=== PATIENT | female | born 1970 | race Caucasian/White ===

== ENCOUNTER 2019-09-18 09:59 | Outpatient (CLI) | payer BC, SELFPAY ==
--- NOTE | 2019-09-18 11:00 | NEURO_ITS ---
Patient Number: [id number] Impression: # Complains of numbness of right hand. # Right Carpal Tunnel Syndrome of moderate degree. # Right ulnar neuropathy across the elbow. # Normal needle/EMG exam. # Clinical correlation recommended. Nerve Conduction Studies Anti Sensory Summary Table Stim Site NR Peak (ms) P-T Amp (?V) Site1 Site2 Delta-P (ms) Dist (cm) Conner (m/s) Right Median Anti Sensory (2-3nd Digit) Wrist 5.3 11.0 Wrist 2-3nd Digit 5.3 14.0 26 Wrist 5.4 11.9 Wrist 2-3nd Digit 5.3 14.0 26 Right Radial Anti Sensory (Base 1st Digit) Wrist 2.3 29.8 Wrist Base 1st Digit 2.3 0.0 Right Ulnar Anti Sensory (5th Digit) Wrist 2.4 54.1 Wrist 5th Digit 2.4 14.0 58 Motor Summary Table Stim Site NR Onset (ms) O-P Amp (mV) Site1 Site2 Delta-0 (ms) Dist (cm) Conner (m/s) Right Median Motor (Abd Poll Brev) Wrist 4.8 1.0 Elbow Wrist 4.9 27.0 55 Elbow 9.7 0.9 Right Ulnar Motor (Abd Dig Minimi) Wrist 2.9 6.1 A Elbow Wrist 5.7 27.0 47 A Elbow 8.6 3.7 B Elbow Wrist 4.4 20.0 45 B Elbow 7.3 1.2 F Wave Studies NR F-Lat (ms) L-R F-Lat (ms) Right Median (Mrkrs) (Abd Poll Brev) 29.44 Right Ulnar (Mrkrs) (Abd Dig Min) 29.77 EMG Side Muscle Nerve Root Ins Act Fibs Amp Dur Recrt Comment Right 1stDorInt Ulnar C8-T1 Nml Nml Nml Nml Nml Right Ext Indicis Radial (Post Int) C7-8 Nml Nml Nml Nml Nml Right Ext Digitorum Radial (Post Int) C7-8 Nml Nml Nml Nml Nml Right BrachioRad Radial C5-6 Nml Nml Nml Nml Nml Right PronatorTeres Median C6-7 Nml Nml Nml Nml Nml Right Abd Poll Brev Median C8-T1 Nml Nml Nml Nml Nml MTDD
== END 2019-09-18 10:00 | disposition home or self-care (01) ==
PROVIDERS: PCP Family Medicine Adolescent Medicine; Visit Provider Physician Assistant
DX: R20.0 Anesthesia of skin (principal); G56.01 Carpal tunnel syndrome, right upper limb; G56.21 Lesion of ulnar nerve, right upper limb
CPT/HCPCS: 95886; 95909

== ENCOUNTER 2019-11-23 00:03 | Outpatient (CLI) | payer BC, SELFPAY ==
[2019-11-23 20:58] LABS: SARS-CoV-2 RNA PCR Negative
== END 2019-11-23 00:04 | disposition home or self-care (01) ==
LOC: ANHCOVIDDT 00:04
PROVIDERS: PCP Family Medicine Adolescent Medicine; Visit Provider Orthopaedic Surgery
DX: Z01.812 Encounter for preprocedural laboratory examination (principal); Z11.59 Encounter for screening for other viral diseases
CPT/HCPCS: 87635; C9803; U0003

== ENCOUNTER 2019-11-23 08:24 | Outpatient (CLI) | payer BC, SELFPAY ==
--- NOTE | 2019-11-23 08:43 | ECG_ITS ---
Measurements Intervals [place] Rate: 79 P: 47 [place]: 153 QRS: 14 QRSD: 98 T: 38 QT: 346 QTc: 397 Interpretive Statements SINUS RHYTHM INCOMPLETE RIGHT BUNDLE BRANCH BLOCK BASELINE WANDER- II, III BORDERLINE ECG Electronically Signed On 11-23-2019 9:27:29 CDT by Parminder Mccarthy D.O.
[2019-11-23 09:40] LABS: Blood Urea Nitrogen 13 mg/dL (7-17); Calcium 9.7 mg/dL (8.4-10.2); Carbon Dioxide 23 mmol/L (22-30); Chloride 99 mmol/L (98-107); Estimated Glomerular Filt Rate > 60; Glucose 389 mg/dL (65-105); Potassium 4.1 mmol/L (3.4-5.0); Sodium 133 mmol/L (137-145)
== END 2019-11-23 08:25 | disposition home or self-care (01) ==
PROVIDERS: PCP Family Medicine Adolescent Medicine; Visit Provider Anesthesiology
DX: G56.01 Carpal tunnel syndrome, right upper limb (principal); I45.10 Unspecified right bundle-branch block
CPT/HCPCS: 36415; 80048; 93005

== ENCOUNTER 2020-06-05 10:01 | Outpatient (CLI) | payer BC, SELFPAY ==
--- NOTE | 2020-06-05 12:00 | NEURO_ITS ---
Impression: # Known diabetic complains of numbness of left hand. # Mild evolving left Carpal Tunnel Syndrome with sensory component more the motor involvement. # Otherwise normal nerve conduction study. # Normal needle/EMG exam. Nerve Conduction Studies Anti Sensory Summary Table Stim Site NR Peak (ms) P-T Amp (?V) Site1 Site2 Delta-P (ms) Dist (cm) Conner (m/s) Left Median Anti Sensory (2-3nd Digit) Wrist 4.3 12.3 Wrist 2-3nd Digit 4.3 14.0 33 Wrist 4.8 23.2 Wrist 2-3nd Digit 4.3 14.0 33 Left Radial Anti Sensory (Base 1st Digit) Wrist 2.2 13.4 Wrist Base 1st Digit 2.2 0.0 Left Ulnar Anti Sensory (5th Digit) Wrist 2.5 39.2 Wrist 5th Digit 2.5 14.0 56 Motor Summary Table Stim Site NR Onset (ms) O-P Amp (mV) Site1 Site2 Delta-0 (ms) Dist (cm) Conner (m/s) Left Median Motor (Abd Poll Brev) Wrist 3.4 4.1 Elbow Wrist 6.0 29.0 48 Elbow 9.4 2.0 Left Ulnar Motor (Abd Dig Minimi) Wrist 2.2 7.5 A Elbow Wrist 5.5 26.0 47 A Elbow 7.7 6.1 B Elbow Wrist 4.4 23.0 52 B Elbow 6.6 2.9 F Wave Studies NR F-Lat (ms) L-R F-Lat (ms) Left Median (Mrkrs) (Abd Poll Brev) 29.77 Left Ulnar (Mrkrs) (Abd Dig Min) 29.53 EMG Side Muscle Nerve Root Ins Act Fibs Amp Dur Recrt Comment Left 1stDorInt Ulnar C8-T1 Nml Nml Nml Nml Nml Left Ext Indicis Radial (Post Int) C7-8 Nml Nml Nml Nml Nml Left Ext Digitorum Radial (Post Int) C7-8 Nml Nml Nml Nml Nml Left BrachioRad Radial C5-6 Nml Nml Nml Nml Nml Left PronatorTeres Median C6-7 Nml Nml Nml Nml Nml Left Abd Poll Brev Median C8-T1 Nml Nml Nml Nml Nml Left ABD Dig Min Ulnar C8-T1 Nml Nml Nml Nml Nml MTDD
== END 2020-06-05 10:02 | disposition home or self-care (01) ==
LOC: ANHNEURO 10:02
PROVIDERS: PCP Family Medicine Adolescent Medicine; Visit Provider Orthopaedic Surgery
DX: G56.02 Carpal tunnel syndrome, left upper limb (principal)
CPT/HCPCS: 95886; 95909

== ENCOUNTER → 2020-09-03 10:11 | Outpatient (CLI) | payer BC, SELFPAY ==
[2020-09-03 20:45] LABS: SARS-CoV-2 RNA PCR Positive
== END ==
PROVIDERS: PCP Family Medicine Adolescent Medicine; Visit Provider Family Medicine Adolescent Medicine
DX: U07.1 COVID-19 (principal)
CPT/HCPCS: C9803; U0003; U0005

== ENCOUNTER 2021-02-25 11:50 | Outpatient (CLI) | payer OTHER, SELFPAY ==
--- NOTE | ~2021-02-25 | XR_ITS ---
XR lumbar spine 2-3V DATE: 02/25/2021 12:15 INDICATION: Lower back pain, radiating to legs. Surgery in 2017. TECHNIQUE: AP, lateral, coned lateral lumbosacral views COMPARISON: 12/20/2014 lumbar spine FINDINGS: There is interval postoperative change with cage devices at L5-S1. There is minimal degenerative disc disease at the lumbar interspaces. There is minimal anterolisthesis at L4-5 due to degenerative change at the apophyseal joints. No fracture or bone destruction. Included lower thoracic and lumbar pedicles are intact. The sacral i liac joints appear normal. Status post cholecystectomy. IMPRESSION: Status post interbody spinal fusion at L5-S1 Minimal anterolisthesis at L4-5 due to degenerative change at the apophyseal joints Minimal degenerative disc disease of the lumbar spine Reviewed, dictated and finalized at location B. IMPRESSION: Status post interbody spinal fusion at L5-S1 Minimal anterolisthesis at L4-5 due to degenerative change at the apophyseal tim ints Minimal degenerative disc disease of the lumbar spine
== END 2021-02-25 11:51 | disposition home or self-care (01) ==
LOC: ANHIMG 11:54
PROVIDERS: PCP Family Medicine Adolescent Medicine; Visit Provider Physician Assistant
DX: M54.5 Low back pain (principal); Z98.1 Arthrodesis status; M47.816 Spondylosis without myelopathy or radiculopathy, lumbar region; Z90.49 Acquired absence of other specified parts of digestive tract
CPT/HCPCS: 72100

== ENCOUNTER 2021-07-09 00:10 | Day surgery (SDC) | payer OTHER, SELFPAY ==
[2021-06-29 15:06] VITALS: BMI 31.4
[2021-07-09 09:30] VITALS: BP 98/66; PULSE 102; RESP 18; TEMP 36.8; O2SAT 96; BMI 31.8
[2021-07-09 09:39] LABS: Glucose Point of Care 283 mg/dl (65-105)
[2021-07-09] MEDS: LACTATED RINGERS 1,000 ML 150 ML IV CONT (09:57)
--- NOTE | 2021-07-09 10:11 | WPDGICN ---
Assessment and Plan Assessment and plan (1) LUQ pain: Code(s): R10.12 - Left upper quadrant pain Status: Acute Assessment and Plan: Patient has ongoing left upper quadrant discomfort. This is of uncertain nature. Appears similar but not as intense as when she had previous diverticulitis episodes. Because of ongoing discomfort colonoscopy is recommended also because of history of diverticulitis. At this time recommend high-fiber diet. Further recommendations will be given after endoscopy. (2) Substernal chest pain: Code(s): R07.2 - Precordial pain Status: Acute Assessment and Plan: Patient has substernal discomfort feels as though there is slow passage of food although she has no regurgitation no burning. No response to pantoprazole. Plan is for EGD to assess more thoroughly and exclude possible underlying GE reflux. Further recommendations will be given after endoscopy. GI Consult Note Consult date/time: 07/09/21 10:11 HPI: Lizeth Olvera is a 50 year old female Presents for endoscopy today. Patient reports several episodes of diverticulitis last year. Initially in the spring and then again in the fall she went to the emergency room. Treated with the antibiotics. She had apparent diverticulitis by CT exam. Patient continues to have vague left upper quadrant discomfort. She states her bowel habits are normal. She has had no recent blood in her stools. Her family history is noncontributory. Additionally she notes occasional substernal pressure after eating. She has no hindrance to eating food solids or liquids. She denies any burning sensation. She is taking Protonix 40mg p.o. daily with no significant change in symptoms. She presents today for colonoscopy an EGD to evaluate ongoing symptoms. Review of Systems Review of Systems: All systems reviewed & are unremarkable except as noted in HPI and below [facility] Past Medical History Medical History (Updated 07/09/21 @ 10:13 by See Alvarez MD) BMI 33.0-33.9,adult Diabetes last A1c 8.8 GERD (gastroesophageal reflux disease) Surgical History Surgical History H/O: hysterectomy (~2011) History of back surgery (~2017) Dr Rubin Family History Family History Sibling Family history of gout Family history of kidney stones Family history of diabetes mellitus in first degree relative Depression Father Family history of heart disease in male family member before age 55 Acute myocardial infarction Diabetes mellitus Hypertension Heart disease Mother Diabetes mellitus Depression Thyroid disorder Other Asthma Depression Grandparent Diabetes mellitus Grandparent Depression Hypertension Other Cerebrovascular accident Family history of arthritis Family history of cardiovascular disease Family history of malignant neoplasm Family history of malignant neoplasm of breast Family history of seizure disorder Family history of throat cancer Social History Social History Smoking status: Former smoker Tobacco type: cigarettes Alcohol intake: never Substance use: never Substance use type: does not use Living arrangements: with family Additional living arrangements comments: 2 daughters Gender identity (if verbalized by the patient): Female Spiritual care concerns: No Meds Home Medications and Allergies Home Medications Medication Instructions Recorded Confirmed Type atorvastatin 10 mg tablet 10 mg PO DAILY 10/09/19 06/29/21 History furosemide 20 mg tablet 20 mg PO QAM 10/09/19 06/29/21 History lisinopril 20 mg tablet 20 mg PO DAILY 10/09/19 06/29/21 History pantoprazole 40 mg tablet,delayed 40 mg PO QAM 10/09/19 06/29/21 History release glimepiride 2 mg tablet 4 mg PO QAM 09/01/20
--- NOTE | 2021-07-09 10:19 | WPDANESEPPF ---
Anes - Initial Pre Proc Eval Procedure: Operation Date: 07/09/21 10:45 Proposed Procedures p Esophagogastroduodenoscopy & Colonoscopy - See Alvarez MD Date/Time: 07/09/21 10:19 Surgeon: See Alvarez MD Pre Op Diagnosis: abdominal pain, nausea, diverticulitis Patient Data Age: 50 Gender: F Height: 1.7 m Weight: 92.1 kg Last Vital Signs Temp 98.3 F 07/09/21 09:30 Pulse 102 H 07/09/21 09:30 Resp 18 07/09/21 09:30 BP 98/66 L 07/09/21 09:30 Pulse Ox 96 07/09/21 09:30 Allergies Allergy/AdvReac Type Severity Reaction Status Date / Time No Known Allergies Allergy Unknown Verified 07/09/21 09:39 Home Medications Medication Instructions Recorded Confirmed Type atorvastatin 10 mg tablet 10 mg PO DAILY 10/09/19 06/29/21 History furosemide 20 mg tablet 20 mg PO QAM 10/09/19 06/29/21 History lisinopril 20 mg tablet 20 mg PO DAILY 10/09/19 06/29/21 History pantoprazole 40 mg tablet,delayed 40 mg PO QAM 10/09/19 06/29/21 History release glimepiride 2 mg tablet 4 mg PO QAM 09/01/20 06/29/21 History insulin detemir U-100 100 unit/mL 85 unit SUBCUT DAILY #80 ml 06/02/21 06/29/21 Rx subcutaneous solution pen needle, diabetic 32 gauge x #100 ea 06/04/21 06/11/21 Rx /32 thyroid (pork) 60 mg tablet 60 mg PO DAILY 06/11/21 06/29/21 History hydrocodone 7.5 mg-acetaminophen 1 tablet PO Q4H PRN #180 tablet 06/12/21 06/29/21 Rx 325 mg tablet insulin syringe-needle U-100 1 mL #30 ea 06/22/21 Rx 29 gauge x 2 ibuprofen 600 mg PO Q6H PRN 06/29/21 06/29/21 History Laboratory Tests 07/09/21 09:37 POC Capillary Glucose 283 mg/dl H mg/dl (65-105) Patient hx anesthesia problems: none Family hx anesthesia problems: none Results Review: All pre-operative results and documents have been reviewed as part of the pre-operative evaluation. [facility] Past Medical History Medical History (Updated 07/09/21 @ 10:13 by See Alvarez MD) BMI 33.0-33.9,adult Diabetes last A1c 8.8 GERD (gastroesophageal reflux disease) Surgical History Surgical History H/O: hysterectomy (~2011) History of back surgery (~2017) Dr Rubin Family History Family History Sibling Family history of gout Family history of kidney stones Family history of diabetes mellitus in first degree relative Depression Father Family history of heart disease in male family member before age 55 Acute myocardial infarction Diabetes mellitus Hypertension Heart disease Mother Diabetes mellitus Depression Thyroid disorder Other Asthma Depression Grandparent Diabetes mellitus Grandparent Depression Hypertension Other Cerebrovascular accident Family history of arthritis Family history of cardiovascular disease Family history of malignant neoplasm Family history of malignant neoplasm of breast Family history of seizure disorder Family history of throat cancer Social History Social History Smoking status: Former smoker Tobacco type: cigarettes Alcohol intake: never Substance use: never Substance use type: does not use Living arrangements: with family Additional living arrangements comments: 2 daughters Gender identity (if verbalized by the patient): Female Spiritual care concerns: No Anes - Eval Final PreProcedure Day of Procedure 07/09/21 10:19 Patient weight: obese Heart: regular rate and rhythm Lungs: clear to auscultation Airway: Mallampati scale class II Neurological: alert and oriented Last oral intake: >/= 8 hours ASA classification: III Emergent: no Anesthetic plan: proceed Anesthesia type and monitoring: general GIVS and standard monitoring Results Review: All pre-operative results and documents have been reviewed as part of the pre-operative evaluation. Inf
[2021-07-09] MEDS: BENZOCAINE (*SP) 60 ML SPRAY CAN (HURRICAINE) 1 SPRAY MUCOUS MEM (10:24)
--- NOTE | 2021-07-09 10:33 | SUR.OPER ---
EGD: [id number] COLON: [id number]
[2021-07-09 10:50] VITALS: BP 98/54; PULSE 78; RESP 20; O2SAT 96
[2021-07-09 11:00] VITALS: BP 98/57; PULSE 76; RESP 17; O2SAT 94
[2021-07-09 11:10] VITALS: BP 99/62; PULSE 76; RESP 17; O2SAT 94
[2021-07-09 11:14] LABS: Glucose Point of Care 239 mg/dl (65-105)
== END 2021-07-09 11:33 | disposition home or self-care (01) ==
PROVIDERS: PCP Family Medicine Adolescent Medicine; Visit Provider Internal Medicine Gastroenterology
PROC: 0DJ08ZZ Inspection of Upper Intestinal Tract, Via Natural or Artificial Opening Endoscopic (ICD-10-PCS; CPT 43235; principal; 2021-07-09 10:45)
DX: K52.9 Noninfective gastroenteritis and colitis, unspecified (principal); R07.2 Precordial pain; K21.9 Gastro-esophageal reflux disease without esophagitis; E11.9 Type 2 diabetes mellitus without complications; Z87.891 Personal history of nicotine dependence; Z79.84 Long term (current) use of oral hypoglycemic drugs; Z79.4 Long term (current) use of insulin; E66.9 Obesity, unspecified; Z68.31 Body mass index [BMI] 31.0-31.9, adult
CPT/HCPCS: 45380; 43239; 82948; 87081; 88305; J2704; J7120

== ENCOUNTER 2023-01-11 14:46 | Outpatient (CLI) | payer BC, OTHER, SELFPAY ==
[2023-01-11 17:32] LABS: Blood Urea Nitrogen 15 mg/dL (7-17); Calcium 9.9 mg/dL (8.4-10.2); Carbon Dioxide > 40 mmol/L (22-30); Chloride 93 mmol/L (98-107); Estimated Glomerular Filt Rate 59; Glucose 106 mg/dL (65-110); HDL Direct 39 mg/dL; Potassium 3.6 mmol/L (3.4-5.0); Sodium 139 mmol/L (137-145)
[2023-01-11 17:43] LABS: LDL Cholesterol Direct 89 mg/dL
[2023-01-11 18:34] LABS: Free T4 Free Thyroxine 0.73 ng/mL (0.78-2.19); Vitamin D 25 Hydroxy 39.3 ng/mL
[2023-01-11 18:40] LABS: Creatinine Urine 205.3 mg/dL
[2023-01-11 18:42] LABS: MALB Creatinine Ratio 11.1 mg/g (0-30); Microalbumin Urine Random 22.7 mg/L (0-16.7)
== END 2023-01-11 14:47 | disposition home or self-care (01) ==
LOC: ANHWCLAB 14:48
PROVIDERS: PCP Family Medicine Adolescent Medicine; Visit Provider Internal Medicine Endocrinology, Diabetes & Metabolism
DX: E03.9 Hypothyroidism, unspecified (principal); E11.65 Type 2 diabetes mellitus with hyperglycemia; E55.9 Vitamin D deficiency, unspecified; E78.1 Pure hyperglyceridemia
CPT/HCPCS: 36415; 80048; 82043; 82306; 82607; 83718; 83721; 84439; 84443

== ENCOUNTER 2023-05-28 12:42 | Outpatient (CLI) | payer OTHER, SELFPAY ==
--- NOTE | ~2023-05-28 | CT_ITS ---
EXAMINATION:CT diagnostic chest wo con DATE: 05/28/2023 12:59 INDICATION: Right lung nodule. TECHNIQUE: Computed tomography (CT) of the chest was performed without intravenous contrast. Automate d exposure control and iterative reconstruction technique were employed. The dose-length product (DLP ) was 192.86 mGy-cm. COMPARISON: None. FINDINGS: The lungs demonstrate mild atelectasis. There is a 6 mm nodule in right lower lobe. There i s a 5 mm nodule in left upper lobe. A calcified left lung nodule and calcified mediastinal lymph node s are consistent with old granulomatous disease. No pleural effusion. The heart size is normal. No pe ricardial effusion. There are coronary artery calcifications. There are changes of cholecystectomy. T here is mild thoracic spondylosis. IMPRESSION: 1. Pulmonary nodules measuring up to 6 mm, probably benign. Consider noncontrast low-dose chest CT in 6-12 months. Reviewed, dictated and finalized at location A. L SPRAY OPERATOR IMPRESSION: 1. Pulmonary nodules measuring up to 6 mm, probably benign. Consider noncontras t low-dose chest CT in 6-12 months.
== END 2023-05-28 12:43 | disposition home or self-care (01) ==
LOC: ANHIMG 12:43
PROVIDERS: PCP Family Medicine Adolescent Medicine; Visit Provider Family Medicine Adolescent Medicine
DX: R91.1 Solitary pulmonary nodule (principal); R91.8 Other nonspecific abnormal finding of lung field
CPT/HCPCS: 71250

== ENCOUNTER 2023-10-04 08:12 | Outpatient (CLI) | payer BC, SELFPAY ==
--- NOTE | ~2023-10-04 | MM_ITS ---
EXAMINATION: MM screening sarah BI w ana HISTORY: Screening mammogram TECHNIQUE: Craniocaudal and mediolateral oblique 3-D tomosynthesis images were obtained and synthetic 2-D images were generated. CAD analysis was submitted and interpreted. COMPARISON: No prior mammogram is available for comparison at this institution. BREAST PARENCHYMAL COMPOSITION: The breasts are almost entirely fatty. FINDINGS: There is no evidence of suspicious mass, calcification, or architectural distortion to sugg est malignancy in either breast. There has been no suspicious interval change. IMPRESSION: 1. No mammographic evidence of malignancy. 2. Recommend routine screening mammography in one year. BI-RADS Category 1: Negative Reviewed, dictated and finalized at location B.
== END 2023-10-04 08:13 | disposition home or self-care (01) ==
PROVIDERS: PCP Family Medicine Adolescent Medicine; Visit Provider Family Medicine Adolescent Medicine
DX: Z12.31 Encounter for screening mammogram for malignant neoplasm of breast (principal)
CPT/HCPCS: 77063; 77067

== ENCOUNTER 2025-01-23 09:03 | Outpatient (CLI) | payer BC, SELFPAY ==
--- NOTE | ~2025-01-23 | XR_ITS ---
XR lumbar spine min 4V Indication: M54.9 - Dorsalgia, unspecified Comparison: None Findings: Grade 1 anterolisthesis of L4 on L5, no acute fracture. Disc prosthesis at L5-S1, the hardware is intact. Minimal loss of the remaining disc heights. Soft tissues unremarkable Impression: No acute abnormality. Reviewed, dictated and finalized at location A. Impression: No acute abnormality.
--- NOTE | ~2025-01-23 | CT_ITS ---
EXAMINATION: CT diagnostic chest wo con DATE: 01/23/2025 09:28 INDICATION: Solitary pulmonary nodule TECHNIQUE: Computed tomography (CT) of the chest was performed without intravenous contrast. The dose-length product was 103.03 mGy-cm. COMPARISON: 05/28/2023 FINDINGS: No enlarged mediastinal or hilar lymph nodes identified. There are a few nonenlarged, nonspecific mediastinal and hilar lymph nodes a few which are calcified similar to the prior study. Heart is not enlarged. Minimal calcification of the coronary arteries. Thoracic aorta is is not aneurysmal. Cholecystectomy. Tracheobronchial tree is patent. No pleural effusion. No pneumothorax. No pulmonary mass. Stable calcified 6 mm subpleural nodule in the left lung apex. Stable mm noncalcified pulmonary nodule in the left lung apex. The previously identified 5 mm pulmonary nodule in the lingula is no longer id entified. Stable 6 cm pulmonary nodule in the right lower lobe. Multilevel mild degenerative change in the visualized spine similar to the prior study. IMPRESSION: 1. Stable 6 mm pulmonary nodule in the right lower lobe. No new pulmonary nodules. A follow-up chest CT in 6 months is recommended. Reviewed, dictated and finalized at location Q. IMPRESSION: 1. Stable 6 mm pulmonary nodule in the right lower lobe. No new pulmonary nodul es. A follow-up chest CT in 6 months is recommended.
--- OUTSIDE RECORDS SUMMARY | 2025-01-23 09:14 | XMS_ITS | Encounter Summary ---
Author Organization [facility] Facility Care Team Providers Care Archives Technician Name Role Phone Tricia Palma Primary Care Provider [phone] Rafita Benoit MD Primary Care Prov ider Encounter Details Date Type Department Care Team (Latest Contact Info) Description 08/26/2016 Orders Only [facility] CLINCONV ProviderPa MD [address] [place] [id number] Social History Tobacco Use Types Packs/Day Years Used Date Smoking Tobacco: Never Assessed Comments Unknown Sex and Gender Information Value Date Recorded Sex Assigned at Not on file Legal 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 Historical Provider Final Res ult documented in this encounter Visit Diagnoses Not on filedocumented in this encounter Care Teams Archives Technician Relationship Specialty Start Date End Date Tricia Palma PA [address] [place] [address] PCP - General Physician Board Worker 02/26/21 04/21/21 Rafita Benoit MD [address] [place] [address] PCP - General Family Medicine 04/22/21 documented as of this encounter
--- OUTSIDE RECORDS SUMMARY | 2025-01-23 09:14 | XMS_ITS | Encounter Summary ---
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 Historical Provider MD Final Res ult * PROCEDURE - RESULT (11/05/2016 12:00 AM CDT) Narrative 11/05/2016 12:00 AM CDT Ordered by an unspecified provider. Historical Provider Final Res ult * PROCEDURE - RESULT (11/05/2016 12:00 AM CDT) Narrative 11/05/2016 12:00 AM CDT Ordered by an unspecified provider. Historical Provider Final Res ult * PROCEDURE - RESULT (11/05/2016 12:00 AM CDT) Narrative 11/05/2016 12:00 AM CDT Ordered by an unspecified provider. Historical Provider Final Res ult documented in this encounter Visit Diagnoses Not on filedocumented in this encounter Care Teams Refueling Ramp Supervisor Relationship Specialty Start Date End Date Tricia Palma PA [address] [place] [address] PCP - General Physician Press Leader 02/26/21 04/21/21 Rafita Benoit MD [address] [place] [address] PCP - General Family Medicine 04/22/21 documented as of this encounter
--- OUTSIDE RECORDS SUMMARY | 2025-01-23 09:14 | XMS_ITS | Encounter Summary ---
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 Historical Provider Final Res ult documented in this encounter Visit Diagnoses Not on filedocumented in this encounter Care Teams Spring Setter Relationship Specialty Start Date End Date Tricia Palma PA [address] [place] [address] PCP - General Physician Winchman/Crane Operator 02/26/21 04/21/21 Rafita Benoit MD [address] [place] [address] PCP - General Family Medicine 04/22/21 documented as of this encounter
--- OUTSIDE RECORDS SUMMARY | 2025-01-23 09:14 | XMS_ITS | Encounter Summary ---
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 Historical Provider Final Res ult documented in this encounter Visit Diagnoses Not on filedocumented in this encounter Care Teams Vamp Creaser Relationship Specialty Start Date End Date Tricia Palma PA [address] [place] [address] PCP - General Physician Sanitation Worker Cleaning Machinery 02/26/21 04/21/21 Rafita Benoit MD [address] [place] [address] PCP - General Family Medicine 04/22/21 documented as of this encounter
--- OUTSIDE RECORDS SUMMARY | 2025-01-23 09:14 | XMS_ITS | Clinical Summary ---
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 Gender Identity Not on file Sexual Orientation Not on file Last Filed Vital Signs Vital Sign Reading Time Taken Comments Blood Pressure 114/79 11/05/2016 2:19 PM CDT Pulse 82 11/05/2016 2:19 PM CDT Temperature 37 C (98.6 F) 11/05/2016 2:19 PM CDT Respiratory Rate - - Oxygen Saturation 97% 11/05/2016 2:19 PM CDT Inhaled Oxygen Concentration - - Weight 98 kg (216 lb) 11/05/2016 2:19 PM CDT Height 170.2 cm (5' 7) 11/05/2016 2:19 PM CDT Body Mass Index 33.83 11/05/2016 2:19 PM CDT Plan of Treatment Not on file Insurance [facility] Care Teams Electronic Musical Instrument Repairer Relationship Specialty Start Date End Date Rafita Benoit MD PCP - General Family Medicine 04/22/21
--- OUTSIDE RECORDS SUMMARY | 2025-01-23 09:14 | XMS_ITS | Encounter Summary ---
Author Organization [facility] Facility Care Team Providers Care Watch Crystal Molder Name Role Phone Tricia Palma Primary Care Provider [phone] Rafita Benoit MD Primary Care Prov ider Encounter Details Date Type Department Care Team (Latest Contact Info) Description 09/14/2016 Orders Only [facility]G CLINCONV ProviderPa MD [address] [place] [address] Social History Tobacco Use Types Packs/Day Years Used Date Smoking Tobacco: Never Assessed Comments Unknown Sex and Gender Information Value Date Recorded Sex Assigned at Not on file Legal Sex Female 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 Historical Provider Final Res ult documented in this encounter Visit Diagnoses Not on filedocumented in this encounter Care Teams Watch Crystal Molder Relationship Specialty Start Date End Date Tricia Palma PA [address] [place] [address] PCP - General Physician Business Support Specialist 02/26/21 04/21/21 Rafita Benoit MD [address] [place] [address] PCP - General Family Medicine 04/22/21 documented as of this encounter
--- OUTSIDE RECORDS SUMMARY | 2025-01-23 09:14 | XMS_ITS | Encounter Summary ---
Author Organization [facility] Facility Care Team Providers Care E Commerce Manager Name Role Phone Tricia Palma Primary Care Provider [phone] Rafita Benoit MD Primary Care Prov ider Encounter Details Date Type Department Care Team (Latest Contact Info) Description 05/18/2016 Orders Only [facility] CLINCONV ProviderPa MD [address] [place] [address] Social History Tobacco Use Types Packs/Day Years Used Date Smoking Tobacco: Never Assessed Comments Unknown Sex and Gender Information Value Date Recorded Sex Assigned at Not on file Legal Sex Female 2:16 AM CRM ANALYST Gender Identity Not on file Sexual Orientation Not on file documented as of this encounter Plan of Treatment Not on file documented as of this encounter Procedures Procedure Name Priority Date/Time Associated Diagnosis Comments PROCEDURE - RESULT 05/18/2016 12 :00 AM CRM ANALYST PROCEDURE - RESULT 05/18/2016 12 :00 AM CRM ANALYST documented in this encounter Results * PROCEDURE - RESULT (05/18/2016 12:00 AM CRM ANALYST) Narrative 05/18/2016 12:00 AM CRM ANALYST Ordered by an unspecified provider. Historical Provider Final Res ult * PROCEDURE - RESULT (05/18/2016 12:00 AM CRM ANALYST) Narrative 05/18/2016 12:00 AM CRM ANALYST Ordered by an unspecified provider. us Historical Provider Final Res ult documented in this encounter Visit Diagnoses Not on filedocumented in this encounter Care Teams E Commerce Manager Relationship Specialty Start Date End Date Tricia Palma PA [address] [place] [address] PCP - General Physician Marketing Summer Intern 02/26/21 04/21/21 Rafita Benoit MD [address] [place] [address] PCP - General Family Medicine 04/22/21 documented as of this encounter
--- OUTSIDE RECORDS SUMMARY | 2025-01-23 09:14 | XMS_ITS | Encounter Summary ---
Author Organization [facility] Facility Care Team Providers Care Oxygen Tank Filler Name Role Phone Tricia Palma Primary Care Provider [phone] Rafita Benoit MD Primary Care Prov ider Encounter Details Date Type Department Care Team (Latest Contact Info) Description 06/29/2016 Orders Only [facility] CLINCONV ProviderPa MD [address] [place] [address] Social History Tobacco Use Types Packs/Day Years Used Date Smoking Tobacco: Never Assessed Comments Unknown Sex and Gender Information Value Date Recorded Sex Assigned at Not on file Legal Sex Female 2:16 AM HOME CARE PHYSICAL THERAPIST Gender Identity Not on file Sexual Orientation Not on file documented as of this encounter Plan of Treatment Not on file documented as of this encounter Procedures Procedure Name Priority Date/Time Associated Diagnosis Comments PROCEDURE - RESULT 06/29/2016 12 :00 AM HOME CARE PHYSICAL THERAPIST documented in this encounter Results * PROCEDURE - RESULT (06/29/2016 12:00 AM HOME CARE PHYSICAL THERAPIST) Narrative 06/29/2016 12:00 AM HOME CARE PHYSICAL THERAPIST Ordered by an unspecified provider. Historical Provider Final Res ult documented in this encounter Visit Diagnoses Not on filedocumented in this encounter Care Teams Oxygen Tank Filler Relationship Specialty Start Date End Date Tricia Palma PA [address] [place] [address] PCP - General Physician Housekeeper Nanny 02/26/21 04/21/21 Rafita Benoit MD [address] [place] [address] PCP - General Family Medicine 04/22/21 documented as of this encounter
--- OUTSIDE RECORDS SUMMARY | 2025-01-23 09:14 | XMS_ITS | Clinical Summary ---
Author Organization [facility] Care Team Providers Care Teacher Adventure Education Name Role Phone Unavailable Primary Care Provider Unavailabl e Social History Tobacco Use Types Packs/Day Years Used Date Smoking Tobacco: Never Assessed Comments Unknown Sex and Gender Information Value Date Recorded Sex Assigned at Not on file Legal Sex Female 10:53 PM CDT Gender Identity Not on file Sexual Orientation Not on file Plan of Treatment Not on file
== END 2025-01-23 09:04 | disposition home or self-care (01) ==
PROVIDERS: PCP Family Medicine; Visit Provider Family Medicine
DX: R91.1 Solitary pulmonary nodule (principal); M54.9 Dorsalgia, unspecified; Z98.890 Other specified postprocedural states
CPT/HCPCS: 71250; 72110

== ENCOUNTER 2025-02-12 08:46 | Outpatient (CLI) | payer BC, SELFPAY ==
--- NOTE | ~2025-02-12 | XR_ITS ---
Clinical history:Fusion of spine EXAM:X-ray lumbar spine 6 views with bending TECHNIQUE:7 images of the lumbar spine were obtained. Comparisons:01/23/2025 FINDINGS: Interbody fusion device at the L5-S1 level. Lumbar vertebral body heights are within normal limits. No compression fracture in the lumbar spine. Grade 1 anterolisthesis of L4 on L5 which is grossly unchanged with flexion or extension. There is bowel gas and stool projecting over the pelvis which limits evaluation. Mild joint space narrowing at the L4-5 level. Cholecystectomy clips are present. Degenerative change in the lower lumbar facet joints. IMPRESSION: 1. No compression fracture and lumbar spine. 2.Grade 1 anterolisthesis of L4 on L5 which is grossly unchanged with flexion or extension. If symptoms persist or worsen, consider a short-term follow-up study or additional imaging for further assessment. Reviewed, dictated and finalized at location Q. IMPRESSION: 1. No compression fracture and lumbar spine. 2.Grade 1 anterolisthesis of L4 on L5 which is grossly unchanged with flexion o r extension. If symptoms persist or worsen, consider a short-term follow-up study or additio nal imaging for further assessment.
--- NOTE | ~2025-02-12 | XR_ITS ---
EXAMINATION: SACRUM/COCCYX DATE: 02/12/2025 09:53 INDICATION: Sacroiliitis TECHNIQUE: Three views sacrum/coccyx FINDINGS: 12/20/2014 There is no displaced fracture of the sacrum. The coccyx demonstrates overall normal morphology without acute angulation.There are prosthetic disc devices at L5-S1. IMPRESSION: 1. No acute displaced osseous abnormality of the sacrum. Suspicion for occult or nondisplaced sacral fracture can either be evaluated with CT or MRI. 2. Grossly normal morphology to the coccyx without acute angulation. However, due to the wide range of normal variation of the coccyx, acute injury would be best evaluated by clinical examination and patient's symptoms. Reviewed, dictated and finalized at location O.
--- NOTE | ~2025-02-12 | MR_ITS ---
EXAMINATION: MR lumbar spine [facility], 02/12/2025 8:45 CDT HISTORY: M54.9 - Dorsalgia, unspecified COMPARISON: None TECHNIQUE: Multi-planar multi-sequence images were obtained of the lumbar spine without contrast per protocol. FINDINGS: Minimal loss of vertebral height throughout with grade 1 anterolisthesis of L4 on L5, no fracture is identified. Marrow signal is appropriate with scattered areas of subcentimeter hemangioma formation. Posterior alignment is intact. No abnormal signal within the posterior elements Conus terminates at T12-L1, there is no abnormal signal within the cord Moderate loss of disc height throughout most marked at L4-5 grade disc prostheses L5-S1. There is minimal disc desiccation and endplate degenerative change at L4-5. Soft tissues demonstrate left renal cyst 1.1 x 1.2 cm L5-S1: There is no canal or foraminal stenosis L4-5: Circumferential bulging of the disc with ligamentum flavum and facet hypertrophy. Moderate to severe bilateral foramina, lateral recess and canal stenosis. L3-4: Circumferential bulging of the disc with mild bilateral foraminal stenosis. No canal stenosis. L2-L3: No canal or foraminal stenosis L1-L2: No canal or foraminal stenosis IMPRESSION: Degenerative changes detailed above Reviewed, dictated and finalized at location A.
== END 2025-02-12 08:47 | disposition home or self-care (01) ==
PROVIDERS: PCP Family Medicine; Visit Provider Nurse Practitioner Adult Health
DX: M46.1 Sacroiliitis, not elsewhere classified (principal); M48.061 Spinal stenosis, lumbar region without neurogenic claudication; M43.26 Fusion of spine, lumbar region; M47.26 Other spondylosis with radiculopathy, lumbar region; M51.369 Other intervertebral disc degeneration, lumbar region without mention of lumbar back pain or lower extremity pain
CPT/HCPCS: 72114; 72148; 72220

== ENCOUNTER 2025-03-18 01:36 | Day surgery (SDC) | payer BC, SELFPAY ==
[2025-03-07 14:52] VITALS: BMI 28.3
--- NOTE | 2025-03-07 14:54 | PC.NURSE ---
[facility] has started construction of its new state of the art ER which will open Spring 2026. With this, we anticipate parking may be a challenge for some our surgical patients and families. Parking spaces are limited but are available for all Surgical, obstetrics, and ER patients sharing this lot. If you arrive and find you are having a hard time finding a parking space, please note that we understand the challenges, please drive around the hospital and park near Hospital Entrance 1. When you enter this entrance, you can ask a volunteer to direct or take you back to the surgical waiting area to check in. We appreciate everyone?s understanding of these expected challenges while we build for your future. Report to the Outpatient Waiting Room, entrance under the green pavilion located off [address], at time _1pm_ on date _[id number]_. Planned Procedure Time: _2pm_.? Time changes happen often and if your time is changed the preop area will call you the afternoon before. - You and your visitor will be asked to self-screen and do not enter if you have any COVID symptoms. Please call surgeon if you need to reschedule. - A mask is optional within the hospital at this time. Eat breakfast and OK for early light lunch. Nothing to eat or drink 2 hours prior to procedure 1200. No smoking, or chewing tobacco (or any form of nicotine). No chewing gum, candy or mints. Take only the following medications with a SIP of water on the morning of surgery: _Ok medications__ DO NOT STOP ANY OF YOUR OTHER PRESCRIPTION MEDICATIONS PRIOR TO SURGERY EXCEPT THE FOLLOWING Hold all vitamins and supplements for 3 days per anesthesiologist. Medications to discontinue per physician Patient says she was told to stop Aspirin and ibuprofen 1 week before procedure. Date to take last dose Please no make-up, nail czech, hairspray, perfume, deodorant, or body powder the day of surgery.? No jewelry (including any body piercings) or valuables the day of surgery, leave them at home.? Please take a shower or bath the night before, or the morning of, surgery with an antibacterial soap.? Wear comfortable, loose fitting clothing.? - Jewelry must be removed prior to entering the operating room.? Rings and piercings that are not removed may be cut off. - The hospital will not accept responsibility for valuables.? - Please leave all valuables, including medications, at home the day of surgery. If you are going home after surgery, a licensed auto transport driver must drive you home.? - NO public transportation without another adult if you receive anesthesia. - We recommend that an adult stay with you for 24 hours following discharge. - We also recommend that you do not drive, make important decision, drink alcoholic beverages, or take any drugs that were not prescribed by your health care provider for at least 24 hours after your discharge time. Follow any additional instructions given to you from your surgeon. Telephone instructions given to __Janjohn__and asked if any additional questions and then verbalized understanding. Patient advised to call surgeon office or pre surgery nurse liaison [phone] if any additional questions.
--- NOTE | ~2025-03-18 | XR_ITS ---
XR fluoroscopy no charge Indication: Bilateral L4-5 transforaminal epidural steroid injection TECHNIQUE: Fluoroscopy used during Bilateral L4-5 transforaminal epidural steroid injection performed by [Spike Quarles MD] on 03/18/2025. 23 seconds of fluoroscopy with 65 fluoroscopic images captured. FINDINGS: Correlate with procedure note. IMPRESSION: Fluoroscopy used during Bilateral L4-5 transforaminal epidural steroid injection. Reviewed, dictated and finalized at location O. IMPRESSION: Fluoroscopy used during Bilateral L4-5 transforaminal epidural ster oid injection.
--- OUTSIDE RECORDS SUMMARY | 2025-03-18 01:39 | XMS_ITS | Encounter Summary ---
Author Organization [facility] Facility Care Team Providers Care Offset Label Rewinder Name Role Phone Tricia Palma Primary Care Provider [phone] Rafita Benoit MD Primary Care Prov ider Encounter Details Date Type Department Care Team (Latest Contact Info) Description 09/14/2016 Orders Only [facility] CLINCONV ProviderPa MD [address] [place] [address] Social History Tobacco Use Types Packs/Day Years Used Date Smoking Tobacco: Never Assessed Comments Unknown Sex and Gender Information Value Date Recorded Sex Assigned at Not on file Legal Sex Female 2:16 AM DATAPOWER CONSULTANT Gender Identity Not on file Sexual Orientation [...] on filedocumented in this encounter Care Teams Offset Label Rewinder Relationship Specialty Start Date End Date Tricia Palma PA [address] [place] [address] PCP - General Physician Nuclear Plant Construction Worker 02/26/21 04/21/21 Rafita Benoit MD [address] [place] [address] PCP - General Family Medicine 04/22/21 documented as of this encounter
--- OUTSIDE RECORDS SUMMARY | 2025-03-18 01:39 | XMS_ITS | Encounter Summary ---
Author Organization [facility] Facility Care Team Providers Care Echometer Engineer Name Role Phone Tricia Palma Primary Care Provider [phone] Rafita Benoit MD Primary Care Prov ider Encounter Details Date Type Department Care Team (Latest Contact Info) Description 03/25/2016 Orders Only [facility] CLINCONV ProviderPa MD [address] [place] [address] Social History Tobacco Use Types Packs/Day Years Used Date Smoking Tobacco: Never Assessed Comments Unknown Sex and Gender Information Value Date Recorded Sex Assigned at Not on file Legal Sex Female 2:16 AM CHIEF DEPUTY CLERK/BAILIFF Gender Identity Not on file Sexual Orientation [...] on filedocumented in this encounter Care Teams Echometer Engineer Relationship Specialty Start Date End Date Tricia Palma PA [address] [place] [address] PCP - General Physician Advance Seal Delivery System Maintainer 02/26/21 04/21/21 Rafita Benoit MD [address] [place] [address] PCP - General Family Medicine 04/22/21 documented as of this encounter
--- OUTSIDE RECORDS SUMMARY | 2025-03-18 01:39 | XMS_ITS | Encounter Summary ---
Author Organization [facility] Facility Care Team Providers Care Content Assistant Name Role Phone Tricia Palma Primary Care Provider [phone] Rafita Benoit MD Primary Care Prov ider Encounter Details Date Type Department Care Team (Latest Contact Info) Description 11/08/2016 Orders Only [facility] CLINCONV ProviderPa MD [address] [place] [address] Social History Tobacco Use Types Packs/Day Years Used Date Smoking Tobacco: Never Assessed Comments Unknown Sex and Gender Information Value Date Recorded Sex Assigned at Not on file Legal Sex Female 2:16 AM TRAILER ASSEMBLER Gender Identity Not on file Sexual Orientation [...] on filedocumented in this encounter Care Teams Content Assistant Relationship Specialty Start Date End Date Tricia Palma PA [address] [place] [address] PCP - General Physician Baler Operator 02/26/21 04/21/21 Rafita Benoit MD [address] [place] [address] PCP - General Family Medicine 04/22/21 documented as of this encounter
--- OUTSIDE RECORDS SUMMARY | 2025-03-18 01:39 | XMS_ITS | Encounter Summary ---
Author Organization [facility] Facility Care Team Providers Care Cataract Lens Generator Name Role Phone Tricia Palma Primary Care Provider [phone] Rafita Benoit MD Primary Care Prov ider Encounter Details Date Type Department Care Team (Latest Contact Info) Description 08/26/2016 Orders Only [facility] CLINCONV ProviderPa MD [address] [place] [address] Social History Tobacco Use Types Packs/Day Years Used Date Smoking Tobacco: Never Assessed Comments Unknown Sex and Gender Information Value Date Recorded Sex Assigned at Not on file Legal Sex Female 2:16 AM CUSTOMER SERVICE TRAINER Gender Identity Not on file Sexual Orientation [...] on filedocumented in this encounter Care Teams Cataract Lens Generator Relationship Specialty Start Date End Date Tricia Palma PA [address] [place] [address] PCP - General Physician Rechecker 02/26/21 04/21/21 Rafita Benoit MD [address] [place] [address] PCP - General Family Medicine 04/22/21 documented as of this encounter
--- OUTSIDE RECORDS SUMMARY | 2025-03-18 01:39 | XMS_ITS | Encounter Summary ---
Author Organization [facility] Facility Care Team Providers Care Packaging Specialist Name Role Phone Tricia Palma Primary Care Provider Rafita Benoit MD Primary Care Prov ider Encounter Details Date Type Department Care Team (Latest Contact Info) Description 05/18/2016 Orders Only [facility] CLINCONV ProviderPa MD [address] [place] [address] Social History Tobacco Use Types Packs/Day Years Used Date Smoking Tobacco: Never Assessed Comments Unknown Sex and Gender Information Value Date Recorded Sex Assigned at Not on file Legal Sex Female 2:16 AM GEOLOGY SCIENTIST Gender Identity Not on file Sexual Orientation Not on file documented as of this encounter Plan of Treatment Not on file documented as of this encounter Procedures Procedure Name Priority Date/Time Associated Diagnosis Comments PROCEDURE - RESULT 05/18/2016 12 :00 AM GEOLOGY SCIENTIST PROCEDURE - RESULT 05/18/2016 12 :00 AM GEOLOGY SCIENTIST documented in this encounter Results * PROCEDURE - RESULT (05/18/2016 12:00 AM GEOLOGY SCIENTIST) Narrative 05/18/2016 12:00 AM GEOLOGY SCIENTIST Ordered by an unspecified provider. Historical Provider Final Res ult * PROCEDURE - RESULT (05/18/2016 12:00 AM GEOLOGY SCIENTIST) Narrative 05/18/2016 12:00 AM GEOLOGY SCIENTIST Ordered by an unspecified provider. us Historical Provider Final Res ult documented in this encounter Visit Diagnoses Not on filedocumented in this encounter Care Teams Packaging Specialist Relationship Specialty Start Date End Date Tricia Palma PA [address] [place] [address] PCP - General Physician Sheriff'S Officer 02/26/21 04/21/21 Rafita Benoit MD [address] [place] [address] PCP - General Family Medicine 04/22/21 documented as of this encounter
--- OUTSIDE RECORDS SUMMARY | 2025-03-18 01:39 | XMS_ITS | Clinical Summary ---
Author Organization [facility] [address] Address [address] [place] [address] Care Team Providers Care Co Founder And President Name Role Phone Rafita Benoit MD Primary Care Prov ider Allergies No known active allergies Social History Tobacco Use Types Packs/Day Years Used Date Smoking Tobacco: Never Assessed Personal Safety Answer Date Recorded Getting School Help Needed Not on file 08/13 Comments Unknown Sex and Gender Information Value Date Recorded Sex Assigned at Not on file Legal Sex Female 2:16 AM NEIGHBORHOOD AIDE Gender Identity Not on file Sexual Orientation [...] Plan of Treatment Not on file Insurance [facility] Care Teams Co Founder And President Relationship Specialty Start Date End Date Rafita Benoit MD PCP - General Family Medicine 04/22/21
--- OUTSIDE RECORDS SUMMARY | 2025-03-18 01:39 | XMS_ITS | Clinical Summary ---
Author Organization [facility] Care Team Providers Care Metal Machinist Name Role Phone Unavailable Primary Care Provider [...]
--- OUTSIDE RECORDS SUMMARY | 2025-03-18 01:39 | XMS_ITS | Clinical Summary ---
Author Organization [facility] Address [address] [place] [address] Care Team Providers Care Lead Burner Name Role Phone Tricia Palma Primary Care Provider [phone] Allergies No known active allergies Medications atorvastatin 10 MG tablet Take 10 mg by mouth daily. Active furosemide 20 MG tablet Take 20 mg by mouth daily. Active glimepiride 2 MG tablet Take 4 mg by mouth every morning before breakfast. Active HYDROcodone-acetam inophen (NORCO) 7.5-325 MG tablet Take 1 tablet by mouth every 4 (four) hours as needed for Pain. Active lisinopril 20 MG tablet lisinopril 20 mg tablet TAKE 1 TABLET BY MOUTH EVERY DAY Active pantoprazole EC 40 MG tablet Take 40 mg by mouth daily. Active insulin detemir 100 UNIT/ML flextouch PEN Inject 92 Units into the skin nightly at bedtime. Active ondansetron 4 MG disintegrating tablet Take 1 tablet (4 mg total) by mouth every 8 (eight) hours as needed for Nausea. 20 tablet 1 Active venlafaxine XR (EFFEXOR-XR) 150 MG 24 hr capsule Take 150 mg by mouth daily. Active indapamide (LOZOL) 2.5 MG tablet Take 2.5 mg by mouth nightly. Active metoprolol succinate ER (TOPROL-XL) 25 MG 24 hr tablet Take 25 mg by mouth daily. Active ibuprofen (MOTRIN) 600 MG tablet Take 600 mg by mouth every 6 (six) hours as needed (headache). Active thyroid (ARMOUR) 60 MG OR tablet Take 65 mg by mouth daily. Active mesalamine ER (PENTASA) 500 MG capsule Take 2 g by mouth 2 (two) times a day. Active acidophilus (FLORAJEN) capsule Take 1 capsule by mouth daily. 30 capsule 2 Active Active Problems Problem Noted Date Diagnosed Date Severe sepsis 03/29/2022 Obstructive sleep apnea 12/17/2014 Essential (primary) hypertension 12/17/2014 Type 2 diabetes mellitus without complications 0 12/17/2014 Family History Medical History Relation Comments Cancer Brother Diabetes Father Heart Disease Father Hypertension Father Asthma Mother COPD Mother Depression Mother Diabetes Mother Heart Disease Mother Hypertension Mother Cancer Sister Diabetes Sister Relation Status Comments Brother Father Mother Sister Social History Tobacco Use Types Packs/Day Years Used Date Smoking Tobacco: Former Cigarettes Q uit: 08/29/2019 Smokeless Tobacco: Former Tobacco Cessation:Counseling Given: No Alcohol Use Standard Drinks/Week Comments Not Currently 0 (1 standard drink = 0.6 oz pur e alcohol) Comments No Sex and Gender Information Value Date Recorded Sex Assigned at Not on file Legal Sex Female 7:28 PM CDT Gender Identity Not on file Sexual Orientation Not on file Last Filed Vital Signs Vital Sign Reading Time Taken Comments Blood Pressure 116/71 04/02/2022 11:50 AM CDT Pulse 60 04/02/2022 11:50 AM CDT Temperature 36.6 C (97.9 F) 04/02/2022 11:50 AM CDT Respiratory Rate 19 04/02/2022 11:5 0 AM CDT Oxygen Saturation 100% 04/02/2022 11: 50 AM CDT Inhaled Oxygen Concentration - - Weight 102.8 kg (226 lb 10.1 oz) 04/02/2022 4:22 AM CDT Height 170.2 cm (5' 7) 03/29/2022 9:16 PM CDT Body Mass Index 35.5 03/29/2022 9:16 PM CDT Plan of Treatment Health Maintenance Due Date Last Done Comments Colorectal Cancer Screening Colonoscopy (10 Years) 1972 Kidney Health Evaluation 1972 Annual Physical 08/14/1975 Diabetes: Retinopathy Eye Exam 1990 Hepatitis C 1990 DTaP, Tdap and Td Vaccines ( 1 - Tdap) 08/14/1991 Hepatitis B Vaccines (1 of 3 - 19+ 3-dose series) 08/14/1991 Pneumococcal Vaccine: 50+ Ye ars (1 of 2 - PCV) 08/14/1991 Mammogram Screening 2012 Hemoglobin A1C 06/14/2018 12/12/2017 Lipid Panel 12/12/2018 12/12/2017 Zoster Vaccines (1 of 2) 2022 COVID-19 Vaccine ( - 2023-2 5 season) 2025 Influenza Adult (#1) 2025 Hepatitis A Vaccines Aged Out No long er eligible based on patient's age to complete this topic Meningococcal B Vaccine Aged Out No l onger eligible based on patient's age to complete this topic Meningococcal Vaccine Aged Out No renzo kei eligible based on patient's age to complete this topic RSV Immunizations Under 20 Months Aged Out No longer eligible based on patient's age to complete this topic Procedures Procedure Name Priority Date/Time Associated Diagnosis Comments LIPID PANEL Routine 12/12/2017 9:57 AM CDT HEMOGLOBIN, GLYCOSYLATED Routine 12/12/2017 9:57 AM CDT from Last 3 Months or Most Recently Relevant to Health Maintenance Results * (ABNORMAL) HEMOGLOBIN, GLYCOSYLATED (12/12/2017 9:57 AM CDT) HGB A1C 7.8(H) <5.7 % 12/12/2017 11:38 AM CDT [facility] Comment: INCREASED RISK OF DIABETES<5.7% NON-DIABETES5.7-6.4% INCREASED RISK FOR FUTURE DIABETES> OR = 6.5 CONSISTENT WITH DIABETES STANDARDS OF MEDICAL CARE IN [facility](SUPP 1): S1-S61,2009 WHOLE BLOOD SPECIMEN / Unknown 12/12/2017 9:57 AM CDT 12/12/2017 9:58 AM CDT us Generic Conversion Md [facility] Final R esult [facility] [address] [place] [address], * (ABNORMAL) LIPID PANEL (12/12/2017 9:57 AM CDT) CHOLESTEROL 210(H) <200.0 MG/DL 12/12/2017 10:38 AM [facility] TRIGLYCERIDES 351(H) <150 MG/DL 12/12/2017 10:38 AM [facility] HDL 37(L) >40.0 MG/DL 12/12/2017 10:38 AM [facility] LDL (CALCULATED) 102.8(H) <100 MG/DL 12/12/2017 10:38 AM [facility] NON HDL CHOLESTEROL 173(H) <130 MG/DL 12/12/2017 10:38 AM [facility] CHOL/HDL RATIO 5.7(H) 0.0 - 4.5 12/12/2017 10:38 AM [facility] VLDL CALCULATION 70(H) 5 - 55 MG/DL 12/12/2017 10:38 AM [facility] LIPID INTERPRETATION 12/12/2017 10:38 AM [facility] Comment: NIH CONCENSUS REPORT RECOMMENDATIONS: ADULT CHILD LOW RISK: CHOLESTEROL <200 <170 TRIGLYCERIDE <150 --- HDL >=60 --- LDL <100 <110 BORDERLINE: CHOLESTEROL 200-239 170-199 TRIGLYCERIDE 150-199 --- HDL 40-59 --- LDL 100-159 110-129 HIGH RISK: CHOLESTEROL >=240 >=200 TRIGLYCERIDE >=200 --- HDL <40 --- LDL >=160 >=130 12/12/2017 9:57 AM CDT 12/12/2017 9:58 AM CDT us Generic Conversion Md [facility] Final R esult [facility] [address] [place] [address], [place] [phone] from Last 3 Months or Most Recently Relevant to Health Maintenance Insurance [employer] Advance Directives * Full Code (Latest Code Status on File) Date Activated Date Inactivated Comments 03/29/2022 8:09 PM 04/02/2022 3:33 PM Care Teams Lead Burner Relationship Specialty Start Date End Date Tricia Palma PA [address] [place] [address] PCP - General PHYSICIAN DELIVERY ROOM CLERK 01/08/21
--- OUTSIDE RECORDS SUMMARY | 2025-03-18 01:39 | XMS_ITS | Encounter Summary ---
Author Organization [facility] Care Team Providers Care Fine Arts Packer Name Role Phone Tricia Palma Primary Care Provider [phone] Rafita Benoit MD Primary Care Prov ider Encounter Details Date Type Department Care Team (Latest Contact Info) Description 06/29/2016 Orders Only [facility] CLINCONV ProviderPa MD [address] [place] [id number] Social History Tobacco Use Types Packs/Day Years Used Date Smoking Tobacco: Never Assessed Comments Unknown Sex and Gender Information Value Date Recorded Sex Assigned at Not on file Legal Sex Female 2:16 AM CLAIM PROCESSOR Gender Identity Not on file Sexual Orientation Not on file documented as of this encounter Plan of Treatment Not on file documented as of this encounter Procedures Procedure Name Priority Date/Time Associated Diagnosis Comments PROCEDURE - RESULT 06/29/2016 12 :00 AM CLAIM PROCESSOR documented in this encounter Results * PROCEDURE - RESULT (06/29/2016 12:00 AM CLAIM PROCESSOR) Narrative 06/29/2016 12:00 AM CLAIM PROCESSOR Ordered by an unspecified provider. Historical Provider Final Res ult documented in this encounter Visit Diagnoses Not on filedocumented in this encounter Care Teams Fine Arts Packer Relationship Specialty Start Date End Date Tricia Palma PA [address] [place] [address] PCP - General Physician Inspecting Machine Adjuster 02/26/21 04/21/21 Rafita Benoit MD [address] [place] [address] PCP - General Family Medicine 04/22/21 documented as of this encounter
--- OUTSIDE RECORDS SUMMARY | 2025-03-18 01:39 | XMS_ITS | Encounter Summary ---
Author Organization [facility] Care Team Providers Care Breakdown Worker Name Role Phone Tricia Palma Primary Care Provider Rafita Benoit MD Primary Care Prov ider Encounter Details Date Type Department Care Team (Latest Contact Info) Description 11/05/2016 Orders Only [facility] CLINCONV ProviderPa MD [address] [place] [address] Social History Tobacco Use Types Packs/Day Years Used Date Smoking Tobacco: Never Assessed Comments Unknown Sex and Gender Information Value Date Recorded Sex Assigned at Not on file Legal Sex Female 2:16 AM WATCH COMMANDER Gender Identity Not on file Sexual Orientation [...] on filedocumented in this encounter Care Teams Breakdown Worker Relationship Specialty Start Date End Date Tricia Palma PA [address] [place] [address] PCP - General Physician Manager Molecular 02/26/21 04/21/21 Rafita Benoit MD [address] [place] [address] PCP - General Family Medicine 04/22/21 documented as of this encounter
--- NOTE | 2025-03-18 13:13 | WPDHPUPDATE1 ---
History and Physical Update Update Date/Time: 03/18/25 13:13 History and Physical has been reviewed, including an updated exam of the patient. There are NO changes in the patient's condition. Risks, benefits, and alternatives have been discussed and questions answered. Patient agrees to proceed with procedure.
--- NOTE | 2025-03-18 13:14 | P.OP_ITS ---
Procedure Note - Detailed Date of Procedure 03/18/25 Pre-op Diagnosis Lumbosacral radiculopathy, lumbar spinal stenosis Post-op Diagnosis Same Procedure Performed Bilateral Lumbar Transforaminal Epidural Steroid Injection under Fluoroscopic Guidance and with Contrast Control at L4-5. Surgeon Spike Quarles MD Anesthesia Local Description of Procedure INFORMED CONSENT: Risks, benefits and alternatives to the procedure were discussed in detail with the patient who expressed explicit understanding and consent to proceed. Patient was informed verbally and in written form regarding the risks associated with the procedure including the low risk of serious infection, bleeding/bruising, allergic reaction, nerve or organ injury, paralysis, procedural site pain or discomfort, worsening pain and/or mobility, failure to treat and/or disfigurement. The patient expressed explicit understanding and consent to proceed. All materials required for the procedure were available prior to procedure start. Site and side was marked prior to procedure and confirmed in the presence of the patient. PROCEDURE IN DETAIL: The patient was brought to the procedural suite and placed in the prone position. Patient was made comfortable with use of pillows under the head/chest, hips and ankles. Skin overlying the injection site was prepared broadly with ChloraPrep applicator and draped in a sterile manner. Aseptic technique was employed throughout. The endplates of the vertebral body at the site of interest were aligned in the AP view. Ipsilateral oblique angulation was utilized to better visualize the neuroforamen of interest. Local anesthesia was established by infiltration with approximately 5 mL of 0.5% PF lidocaine via a 1-1/2 inch 27-gauge needle. A 22-gauge 5.0 inch Will (pencil point) spinal needle was advanced until the needle approached the 6 o'clock position on the pedicle just superior to the exiting nerve root. on the right at L4-5. Lateral view was utilized to confirm appropriate position of the needle tip within the superior and posterior portion of the respective foramen. In an AP view, 1 mL of Omnipaque 300 contrast medium was injected after negative aspiration for CSF, blood or other bodily fluid, showing appropriate neurogram without evidence of intravascular or intrathecal spread of contrast. Digital subtraction imaging was used with an additional 1ml of the same contrast medium to confirm absence of intravascular contrast spread. A 1mL solution containing 5 mg of dexamethasone was injected after negative repeat aspiration. Appropriate spread of the injectate was confirmed with washout of previously injected contrast. No parasthesias were elicited. Needle was removed completely intact without difficulty. The same exact procedure was repeated for all remaining levels on the contralateral side, left L4-5 neuroforamen, modified as necessary to accommodate for the new target location with identical findings and results and no evidence of complication. Images were saved and documented in the patient chart. Patient's skin was clean ed and sterile bandage applied. The patient tolerated the procedure well. The patient was transported to the recovery area in stable condition where they were observed for an appropriate amount of time prior to discharge, without evidence of complication. The patient was instructed to avoid excessive activity for the next 48 hours, including climbing and frequent use of stairs. Showers only for 48 hours. They were instructed not to drive or operate heavy machinery for 24 hours. They are to monitor for severe headaches, fevers, chills, night sweats, erythema/swelling at the site or any other signs of infection, bleeding/bruising, bowel or bladder changes as well as new pain, weakness or numbness in the upper or lower extremity. Should they notice these changes, they are instructed to call our office immediately or report directly to the nearest Emergency Department if no answer or if after posted office hours. COMPLICATIONS: None COMMENTS: None CONTRAST WASTED: 26 mL Omnipaque 300. Complications No immediate complications Condition Stable Disposition Same day [facility] Billing Surgery - Charge Forward: Surgery Billing
[2025-03-18 13:54] VITALS: BP 139/77; PULSE 67; RESP 16; O2SAT 99
[2025-03-18] MEDS: dexAMETHasone SOD PHOS INJ 10 MG/ML 1 ML VIAL IV PUSH (13:58)
[2025-03-18] MEDS: LIDOCAINE 2% PF LOCAL INJ 5 ML VIAL 1 ML INFILTRATE (13:59)
[2025-03-18 14:05] VITALS: BP 134/79; PULSE 67; RESP 16; O2SAT 98
[2025-03-18 14:08] VITALS: BP 119/73; PULSE 70; RESP 16; O2SAT 100
== END 2025-03-18 14:34 | disposition home or self-care (01) ==
PROVIDERS: PCP Family Medicine; Visit Provider Anesthesiology Pain Medicine
PROC: (CPT 64483; principal; 2025-03-18 14:00)
DX: M47.816 Spondylosis without myelopathy or radiculopathy, lumbar region (principal); M46.1 Sacroiliitis, not elsewhere classified; E03.9 Hypothyroidism, unspecified; I10 Essential (primary) hypertension; E11.65 Type 2 diabetes mellitus with hyperglycemia; E11.00 Type 2 diabetes mellitus with hyperosmolarity without nonketotic hyperglycemic-hyperosmolar coma (NKHHC); K21.9 Gastro-esophageal reflux disease without esophagitis; E78.1 Pure hyperglyceridemia; F32.9 Major depressive disorder, single episode, unspecified; M26.609 Unspecified temporomandibular joint disorder, unspecified side; G56.03 Carpal tunnel syndrome, bilateral upper limbs; Z79.82 Long term (current) use of aspirin; Z79.891 Long term (current) use of opiate analgesic; Z79.84 Long term (current) use of oral hypoglycemic drugs; Z79.1 Long term (current) use of non-steroidal anti-inflammatories (NSAID); Z79.85 Long-term (current) use of injectable non-insulin antidiabetic drugs; Z98.890 Other specified postprocedural states; Z90.49 Acquired absence of other specified parts of digestive tract; Z98.1 Arthrodesis status; Z87.891 Personal history of nicotine dependence; Z87.19 Personal history of other diseases of the digestive system; Z80.42 Family history of malignant neoplasm of prostate; Z80.3 Family history of malignant neoplasm of breast; Z80.1 Family history of malignant neoplasm of trachea, bronchus and lung; Z82.49 Family history of ischemic heart disease and other diseases of the circulatory system
CPT/HCPCS: 64483; 99199; J1100; J2003; Q9965

== ENCOUNTER 2025-05-20 03:21 | Day surgery (SDC) | payer BC, SELFPAY ==
[2025-05-06 12:41] VITALS: BMI 27.9
--- OUTSIDE RECORDS SUMMARY | 2025-05-20 03:24 | XMS_ITS | Encounter Summary ---
Author Organization [facility] Care Team Providers Care Literature Professor Name Role Phone Tricia Palma Primary Care Provider [phone] Rafita Benoit MD Primary Care Prov ider Encounter Details Date Type Department Care Team (Latest Contact Info) Description 03/25/2016 Orders Only [facility] CLINCONV ProviderPa MD [address] [place] [address] Social History Tobacco Use Types Packs/Day Years Used Date Smoking Tobacco: Never Assessed Comments Unknown Sex and Gender Information Value Date Recorded Sex Assigned at Not on file Legal Sex Female 2:16 AM PUBLIC HEALTH MICROBIOLOGIST Gender Identity Not on file Sexual Orientation [...] on filedocumented in this encounter Care Teams Literature Professor Relationship Specialty Start Date End Date Tricia Palma PA [address] [place] [address] PCP - General Physician Reporting Coordinator 02/26/21 04/21/21 Rafita Benoit MD [address] [place] [address] PCP - General Family Medicine 04/22/21 documented as of this encounter
--- OUTSIDE RECORDS SUMMARY | 2025-05-20 03:24 | XMS_ITS | Encounter Summary ---
Author Organization [facility] Care Team Providers Care Adhesive Sprayer Name Role Phone Tricia Palma Primary Care Provider Rafita Benoit MD Primary Care Prov ider Encounter Details Date Type Department Care Team (Latest Contact Info) Description 11/05/2016 Orders Only [facility] CLINCONV ProviderPa MD [address] [place] [address] Social History Tobacco Use Types Packs/Day Years Used Date Smoking Tobacco: Never Assessed Comments Unknown Sex and Gender Information Value Date Recorded Sex Assigned at Not on file Legal Sex Female 2:16 AM INSPECTION MACHINE TENDER Gender Identity Not on file Sexual Orientation [...] on filedocumented in this encounter Care Teams Adhesive Sprayer Relationship Specialty Start Date End Date Tricia Palma PA [address] [place] [address] PCP - General Physician Investigator Claims 02/26/21 04/21/21 Rafita Benoit MD [address] [place] [address] PCP - General Family Medicine 04/22/21 documented as of this encounter
--- OUTSIDE RECORDS SUMMARY | 2025-05-20 03:24 | XMS_ITS | Data Portability ---
Author Organization [place] - [facility], Main Office Address [address] [place] [address] Care Team Providers Care Airport Location Manager Name Role Phone ABIOLA SANTILLAN Primary Care Provider ABIOLA SANTILLAN Referring Provider Assessment Encounter Date Assessment Date Assessment LastModified by Organization Details LastModified Time 12/31/2022 12/31/2022 52-year-old patient presents today for 1st postop follow-up after right index and ring trigger finger release on 12/23/22. She states she is doing well overall. Her pain today is 4/10. She has not been taking any medications for the pain. Physical exam: Incisions are clean dry and intact with sutures in place. Sutures removed and Steri-Strips were applied. No redness, edema, or drainage. Some bruising present throughout the palm and fingers. She is able to straighten fingers all the way and make a fist. Sensation is intact throughout. We discussed how to care for her incisions as they are still healing. At this time she does not feel like she is ready to go back to work due to some residual pain and stiffness. We will see her back in 2 weeks and expect to release her for full duty at that time. She is in agreement with this plan. Not available 01/02/2023 19:06:44 01/14/2023 01/14/2023 52-year-old patient presents today for 2nd postop follow-up after right index and ring trigger finger release on 12/23/22. She states she is doing well overall. She has not been taking any medications for pain. Physical exam: Incisions are clean dry and intact with no signs of infection.. She is able to straighten fingers all the way. Still some swelling around the incisions which makes it hard for her to make a full fist. No triggering. Sensation is intact throughout. We discussed how to care for her incisions as they are still healing. At this time she feels like she is ready to return to work. We will place her on a restriction of no heavy lifting with the right hand. We will see her back in 4 weeks and expect to release her for full duty at that time. She is in agreement with this plan. Not available 01/14/2023 10:58:23 02/09/2023 02/09/2023 52-year-old female approximately 7 weeks status post right ring and long finger trigger finger release performed on 12/23/2022. Patient is doing well and is no longer having any triggering of her fingers. Reassurance was provided that the swelling should improve with time. She may use topical anti-inflammator ies such as Voltaren and use ibuprofen as tolerated To help with the residual swelling. She was provided with a full release to return to work without any restrictions. She may follow-up as needed if her symptoms return. [email or web address] Not available 02/09/2023 11:57:50 02/02/2024 02/02/2024 By history and exam the patient is noted to have bilateral wrist sprains and contusions after a fall into a parking lot 1 month ago today's x-rays of the snuffbox check for scaphoid injury is negative. Otherwise her x-rays looked good she is going to continue with activity modification at work no heavy repetitive lifting. We will give her a note for work to modify her activity nothing over 10 lb in terms of lifting. 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 I have advised that she wear a compression sock we will also start her with physical therapy for range of motion swelling control and strengthening. She has a lateral ankle sprain with a small avulsion fracture of the distal tip of the lateral malleolus with this is nondisplaced. We will give her a course of oral prednisone to take as well I will see her back in 4 6 weeks see how she is doing she will continue with current conservative measures and work restrictions she is to elevate her ankle as much as possible when she gets home after work to help with the swelling as well. She voiced understanding agrees above plan she will call for any further problems difficulties or questions. Not available 02/02/2024 17:00:50 03/15/2024 03/15/2024 The patient has resolving sprains of the bilateral wrists and of the right ankle. The ankle is doing pretty well after course of conservative measures including physical therapy she has a couple of therapy sessions left she will continue with these finishes out work on it on her own at home. She does take some occasional kjks-slx-wlxwzmr anti-inflammator y medication to help with the inflammation and continued swelling. She will give it more time wean back into normal activities she can be full weight-bearing throughout the work day. As far as both wrists go she still has a little bit discomfort she is going to continue to be on lifting restrictions for another month and she can return to work full duty with heavy lifting as long as she is comfortable. I do not need to see her back unless there is any more issues she is making good progress. She voiced understanding agrees above plan she will call for any further problems difficulties or questions. Not available 03/15/2024 16:08:07 Plan of Treatment Reminders Order Date Submit Date Provider Last Modified By Organization Details Last Modified Time Details Appointments None recorded. Lab None recorded. Referral physical therapist referral - Please contact patient to schedule 2023 024 [facility] Physical Therapy, [address] [facility] , [place], [address], 17:32:50 Procedures None recorded. Surgeries None recorded. Imaging XR, wrist 2023 024 [email or web address] [facility] [place], [address], [place], [address], 17:01:51 XR, hand, 3 or more view 2022 023 [email or web address] [facility] [place], [address], [place], [address], 3 13:31:36 Medication Orders prednisone 10 mg tablets in a dose pack [email or web address] [id number], [address] [place], [place], [id number], 16:36:15 Patient TargetsNo targets recorded. Patient InstructionsNo instructions recorded. Reason for Referral Physical Therapist Referral for Sprain of right ankle Please contact patient to schedule Referring Physician: Agustin Currie, Orthopedic Surgery, Encounter Date: 02/02/2024 Results Created Date Observation Date Name Description Value Unit Range Abnormal Flag Note LastModifiedBy Organization Detail LastModifiedTime 02/10/20 23 XR, hand, 3 or more view No observ ation record ed. [email or web address] [facility] [place] [address], [place], [address], 02/09/2023 11:56:32 01/27/20 24 12/05/2023 XR, ankle , 3 or more view No observ ation record ed. [email or web address] Not Available 12/30 13:40:35 01/27/20 24 12/05/2023 XR, wrist , 3 or more view No observ ation record ed. [email or web address] Not Available 12/30 13:40:35 01/27/20 24 12/05/2023 XR, hand, 2 view No observ ation record ed. [email or web address] Not Available 12/30 13:40:35 02/02/20 24 XR, wrist No observ ation record ed. [email or web address] [facility] [place] [address], [place], [address], 02/02/2024 17:01:50 Result Notes None recorded. Problems Name Problem SNOMED Code Status Onset Date Resolution Date Notes Provider Name and Address Organization Details Recorded Time Pain of right elbow joint 1469348806387 9109 Active 2021 Not Available [facility] 3 02:45:55 Right lateral elbow tendinopat hy 1218055117998 07 Active 2021 Not Available [facility] 3 02:45:55 Pain of right hand 3624002073455 09 Active 2022 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, [place] [facility] 3 09:45:26 Trigger finger of right hand 8880920237147 9101 Active 2022 Augusto Blanton MD [address] [facility], [facility] [address], [place], [address] , [facility] 3 12:04:49 Pain of right knee joint 5469193228772 00 Active 2023 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, [place] - [facility] 4 15:17:42 Bilateral wrist pain 7685093042215 9105 Active 2023 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, [place] [facility] 4 15:17:57 Pain of right ankle joint 6667954714266 9106 Active 2023 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, [facility] 4 15:20:26 Sprain of right ankle 8703254055037 9105 Active 2023 [employer] null, [facility] 4 16:21:29 Sprain of right wrist 8655408796134 9103 Active 2023 GRETA Duff [address] [facility], [facility] [address], [place], [address] , [facility] 4 17:02:16 Sprain of left wrist 5252714269326 9104 Active 2023 GRETA Duff [address] [facility] [facility], [place], [address] , [facility] 4 17:02:21 Problem Notes None recorded. Procedures Surgical History Date Name Laterality Status Provider Name and Address Organization Details Recorded Time Hand completed RAGHAV Marshall [facility] 02/09/2023 09:58:11 Imaging Results None recorded. Procedure Notes None recorded. Medical Equipment None Reported. Allergies No known drug allergies Medications Name Sig Start Date Stop Date Status Note LastModified by Organization Details LastModified Time amoxicillin 500 mg capsule TAKE 4 CAPSULES BY MOUTH 1 HOUR BEFORE APPOINTME NT 02/01 completed Not Available Not Available Not Available hydrocodone 7.5 mg-ibuprofe n 200 mg tablet Take 1 tablet every 4 hours by oral route. 02/01 completed Not Available Not Available Not Available prednisone 10 mg tablet active Not Available Not Available Not Available venlafaxine ER 75 mg capsule,ext ended release 24 hr 05/04 completed Not Available Not Available Not Available doxycycline hyclate 100 mg capsule TAKE 1 CAPSULE BY MOUTH TWICE A DAY FOR 10 DAYS 02/07 completed Not Available Not Available Not Available atorvastati n 10 mg tablet TAKE 1 TABLET BY MOUTH EVERY DAY active Not Available Not Available No t Available azithromyci n 250 mg tablet TAKE 2 TABLETS NOW, THEN 1 TABLET DAILY FOR 6 DAYS 06/09 completed Not Available Not Available Not Available indapamide 2.5 mg tablet TAKE 1 TABLET BY MOUTH EVERY DAY active Not Available Not Available No t Available fluconazole 150 mg tablet TAKE 1 TABLET BY MOUTH ONCE A SINGLE DOSE. REPEAT IN 7 DAYS active Not Available Not Available No t Available hydrocodone 5 mg-acetamin ophen 325 mg tablet Take 1 tablet every 6 hours by oral route. 02/07 completed Not Available Not Available Not Available lisinopril 20 mg tablet TAKE 1 TABLET BY MOUTH EVERY DAY 02/01 completed Not Available Not Available Not Available ondansetron HCl 4 mg tablet TAKE 1 2 TABLETS BY MOUTH EVERY 6 8 HOURS NEEDED FOR NAUSEA active Not Available Not Available No t Available venlafaxine ER 150 mg capsule,ext ended release 24 hr TAKE 1 CAPSULE BY MOUTH EVERY DAY active Not Available Not Available No t Available metronidazo le 500 mg tablet TAKE 1 TABLET BY MOUTH EVERY 8 HOURS UNTIL FINISHED 05/04 completed Not Available Not Available Not Available fluocinonid e 0.05 % topical ointment APPLY A THIN LAYER TO ORAL LESSIONS 4 6 TIMES PER DAY 02/07 completed Not Available Not Available Not Available ciprofloxac in 250 mg tablet TAKE 2 TABLETS BY MOUTH TWICE A DAY FOR 10 DAYS 02/07 completed Not Available Not Available Not Available ciprofloxac in 500 mg tablet TAKE 1 TABLET BY MOUTH TWICE A DAY 02/07 completed Not Available Not Available Not Available amoxicillin 500 mg tablet TAKE 1 TABLET BY MOUTH THREE TIMES A DAY 05/04 completed Not Available Not Available Not Available glimepiride 2 mg tablet TAKE 2 TABLETS BY MOUTH EVERY MORNING ADMINISTE R WITH BREAKFAST active Not Available Not Available No t Available pantoprazol e 20 mg tablet,nikhil yed release Take 2 tablets every day by oral route. 05/04 completed Not Available Not Available Not Available prednisone 10 mg tablets in a dose pack Take 1 tab by mouth, 3 times a day for 3 daysTake 1 tab by mouth 2 times a day for 2 daysTake 1 tab by mouth once a day for 1 day 2023 active Not Available Not Available Not Avai lable levothyroxi ne 100 mcg tablet TAKE 1 TABLET EVERY DAY 05/04 completed Not Available Not Available Not Available potassium chloride ER 20 mEq tablet,exte nded release(par t/cryst) active Not Available Not Available Not Available triamcinolo ne acetonide 0.1 % dental paste 05/04 completed Not Available Not Available Not Available Kenalog 10 mg/mL suspension for injection In office injection administe red by the provider 02/[address] [facility]: [phone] Not Available Not Available Not Available hydrocodone 7.5 mg-acetamin ophen 325 mg tablet TAKE 1 TABLET BY MOUTH EVERY 4 HOURS NEEDED FOR PAIN active Not Available Not Available No t Available pantoprazol e 40 mg tablet,nikhil yed release TAKE 1 TABLET BY MOUTH EVERY DAY active Not Available Not Available No t Available hydroxyzine HCl 25 mg tablet TAKE 1-2 TABLETS BY MOUTH EVERY 6 HOURS NEEDED FOR ITCHING. 05/04 completed Not Available Not Available Not Available furosemide 20 mg tablet TAKE 1 TABLET BY MOUTH EVERY DAY IN THE MORNING active Not Available Not Available No t Available metoprolol succinate ER 25 mg tablet,exte nded release 24 hr TAKE 1 TABLET BY MOUTH EVERY DAY 02/01 completed Not Available Not Available Not Available insulin syringe U-100 with needle 1 mL 29 gauge x 1/2 USE ONCE DAILY TO INJECT INSULIN 02/07 completed Not Available Not Available Not Available levofloxaci n 500 mg tablet TAKE 1 TABLET BY MOUTH EVERY DAY FOR 5 DAYS 02/07 completed Not Available Not Available Not Available levofloxaci n 750 mg tablet TAKE 1 TABLET BY MOUTH EVERY DAY 02/07 completed Not Available Not Available Not Available methylpredn isolone 4 mg tablets in a dose pack TAKE 6 TABLETS ON DAY 1 DIRECTED ON PACKAGE AND DECREASE BY 1 TAB EACH DAY FOR A TOTAL OF 6 DAYS active Not Available Not Available No t Available ondansetron 4 mg disintegrat ing tablet TAKE 1 TABLET BY MOUTH EVERY 6 HOURS NEEDED FOR NAUSEA AND VOMITING active Not Available Not Available No t Available metformin ER 500 mg tablet,exte nded release 24 hr TAKE 1 TABLET BY MOUTH EVERY DAY WITH FOOD 06/09 completed Not Available Not Available Not Available dicyclomine 10 mg capsule active Not Available Not Available Not Available amoxicillin 875 mg-potassiu m clavulanate 125 mg tablet 02/07 completed Not Available Not Available Not Available duloxetine 30 mg capsule,del ayed release TAKE 1 CAPSULE BY MOUTH EVERY DAY 02/07 completed Not Available Not Available Not Available duloxetine 60 mg capsule,del ayed release Take 1 capsule every day by oral route. 02/07 completed Not Available Not Available Not Available mesalamine ER 500 mg capsule,ext ended release TAKE 4 CAPSULES BY MOUTH TWICE A DAY 02/01 completed Not Available Not Available Not Available BD Ultra-Fine Mini Pen Needle 31 gauge x 3/16 USE FOR INSULIN INJECTION EVERY EVENING 02/07 completed Not Available Not Available Not Available melatonin 5mg 05/04 completed Not Available Not Available Not Available ibuprofen 05/04 completed Not Available Not Available Not Available Levemir U-100 Insulin 100 unit/mL subcutaneou s solution INJECT 85 UNITS SUBCUTANE OUSLY ONCE DAILY 02/01 completed Not Available Not Available Not Available Levemir FlexPen 100 unit/mL (3 mL) solution subcutaneou s insulin pen 02/01 completed Not Available Not Available Not Available lidocaine (PF) 10 mg/mL (1 %) injection solution In office injection administe red by the provider 02/[address] [facility]: [phone] [phone]- [phone] Not Available Not Available Not Available Januvia 100 mg tablet TAKE 1 TABLET BY MOUTH EVERY DAY 02/07 completed Not Available Not Available Not Available mesalamine 1.2 gram tablet,nikhil yed release active Not Available Not Available Not Available Symbicort 160 mcg-4.5 mcg/actuati on HFA aerosol inhaler 05/04 completed Not Available Not Available Not Available Lantus Solostar U-100 Insulin 100 unit/mL (3 mL) subcutaneou s pen INJECT 70 UNITS EVERY DAY 02/01 completed Not Available Not Available Not Available mesalamine ER 0.375 gram capsule,ext ended release 24 hr 02/01 completed Not Available Not Available Not Available thyroid (pork) 60 mg tablet TAKE 1 TABLET BY MOUTH EVERY DAY active Not Available Not Available No t Available thyroid (pork) 15 mg tablet TAKE 1 TABLET BY MOUTH EVERY DAY active Not Available Not Available No t Available levothyroxi ne 100 mcg capsule Take 1 capsule every day by oral route. 05/04 completed Not Available Not Available Not Available ropivacaine (PF) 5 mg/mL (0.5 %) injection solution Take 1 mg by injection route. 02/01 completed Not Available Not Available Not Available Linzess 145 mcg capsule 05/04 completed Not Available Not Available Not Available Farxiga 10 mg tablet TAKE 1 TABLET BY MOUTH EVERY DAY active Not Available Not Available No t Available Trulicity 1.5 mg/0.5 mL subcutaneou s pen injector 02/01 completed Not Available Not Available Not Available Trulicity 0.75 mg/0.5 mL subcutaneou s pen injector 02/01 completed Not Available Not Available Not Available pseudoephed rine 30 mg capsule (abuse-resi stant) Take by oral route. 05/04 completed Not Available Not Available Not Available Xiidra 5 % eye drops in a dropperette 02/01 completed Not Available Not Available Not Available TRUEplus Pen Needle 32 gauge x active Not Available Not Available Not Available Toujeo Max U-300 SoloStar 300 unit/mL (3 mL) subcutaneou s insulin pen active Not Available Not Available Not Available Gvoke HypoPen 2-Pack 1 mg/0.2 mL subcutaneou s auto-inject or INJECT 1 MG (0.2 ML) SUBCUTANE OUSLY ONCE MAY REPEAT ONCE AFTER 15 MINUTES IF NO RESPONSE 02/01 completed Not Available Not Available Not Available Trulicity 3 mg/0.5 mL subcutaneou s pen injector 02/01 completed Not Available Not Available Not Available Trulicity 4.5 mg/0.5 mL subcutaneou s pen injector 02/01 completed Not Available Not Available Not Available Mounjaro 7.5 mg/0.5 mL subcutaneou s pen injector 02/01 completed Not Available Not Available Not Available Mounjaro 5 mg/0.5 mL subcutaneou s pen injector 02/01 completed Not Available Not Available Not Available Mounjaro 10 mg/0.5 mL subcutaneou s pen injector active Not Available Not Available Not Available Vitals Date Recorded Body height Body mass index (BMI) Body weight Pain severity - 0-10 verbal numeric rating [Score] - Reported Provider Name and Address Organization Details Last Updated DateTime 12/31/2022 170.18 cm 31.3 kg/m2 24318.47 g Baljinder Abdul [facility] 12/31/2022 10:12:05 Date Recorded Body height Body mass index (BMI) Body weight Pain severity - 0-10 verbal numeric rating [Score] - Reported Provider Name and Address Organization Details Last Updated DateTime 01/14/2023 170.18 cm 31.3 kg/m2 96761.47 g Baljinder Abdul [facility] 01/14/2023 10:29:47 Date Recorded Body height Body mass index (BMI) Body weight Provider Name and Address Organization Details Last Updated DateTime 02/02/2024 170.18 cm 32.3 kg/m2 22350.03 g Lula Thomas [facility] 02/02/2024 15:12:46 Date Recorded Body height Body mass index (BMI) Body weight Provider Name and Address Organization Details Last Updated DateTime 02/09/2023 170.18 cm 31.3 kg/m2 05396.47 g Roma Abdul [facility] 02/09/2023 09:57:25 Date Recorded Body height Body mass index (BMI) Body weight Provider Name and Address Organization Details Last Updated DateTime 03/15/2024 170.18 cm 31.3 kg/m2 20525.47 g Lula ThomasCHER [place] - [facility] 03/15/2024 15:11:01 Social History Question Answer Notes LastModified by [employer] Details LastModified Time Tobacco Smoking Status Never Smoker Not Available [employer] 07/28/2022 02:35:16 What Was The Date Of Your Most Recent Tobacco Screening? 10/07/2020 [id number] Information not available 07/28/2022 Sex: Unknown Functional Status Question Answer Note LastModified by [employer] Details LastModified Time What is your level of alcohol consumption? None [id number] Information not available 07/28/2022 Mental Status None recorded. Family History Relationship Description Onset Age of this Age Resolved Age Notes LastModified by Organization Details LastModified Time Mother Complication of anesthesia [email or web address] Not available 02/01 15:16:10 Mother Heart disease [email or web address] Not available 2023 15:16:24 Mother Hypertensive disorder [email or web address] Not available 2023 15:16:38 Mother Diabetes mellitus [email or web address] Not available 2023 15:16:51 Father Heart disease [email or web address] Not available 2023 15:16:24 Father Hypertensive disorder [email or web address] Not available 2023 15:16:38 Father Diabetes mellitus [email or web address] Not available 2023 15:16:51 Notes:cancer-sister Medical History Condition Response ARTHRITIS Y DIABETES, TYPE Y Gynecological HistoryNo gynecological history recorded. Obstetrics History GPAL:G 0 P 0 0 0 0 Past Encounters Encounter ID Performer Location Encounter Start Date Encounter Closed Date Diagnosis/Indication Diagnosis SNOMED-CT Code Diagnosis ICD10 Code Diagnosis IMO Codes Diagnosis Note [id number] Jaswant Nelson MD [facility] [place] [address] [place] [address] 08/26/2020 00:00:00 08/26/2020 11:47:50 [id number] MD ARCHIE Vera_[facility] [place] [address] [place] [address] 10/07/2020 00:00:00 10/07/2020 12:41:08 [id number] Jaswant Nelson MD [facility] [place] [address] [place] [address] 11/18/2020 00:00:00 11/18/2020 11:36:59 [id number] Jaswant Nelson MD [facility] [place] [address] [place] [address] 12/01/2021 00:00:00 12/01/2021 17:01:56 [id number] Jaswant Nelson MD [facility] [place] [address] [place] [address] 05/04/2022 00:00:00 05/04/2022 13:32:42 [id number] Jaswant Nelson MD [facility] [place] [address] [place] [address] 06/16/2022 00:00:00 06/16/2022 16:56:15 [id number] Augusto Blanton MD [facility] [place] [address] [place] [address] 12/03/2022 09:22:35 12/03/2022 10:37:01 Pain of right elbow joint 4745025074 2943078 M25.521 Pain of right hand 34428 93015 98358 M79.641 Trigger fi nger of right hand 2392503049 1924925 M65.30 Right late ral elbow tendinopathy 0461186380 82046 M77.11 [id number] Augusto Blanton MD [facility] [place] [address] [place] [address] 12/31/2022 10:10:13 12/31/2022 10:28:10 Pain of right hand 3143279451 09361 M79.641 [id number] Augusto Blanton MD [facility] [place] [address] [place] [address] 01/14/2023 10:27:38 01/14/2023 10:55:12 Pain of right hand 6369389207 12331 M79.249 [id number] Augusto Blanton MD [facility] [place] [address] [place] [address] 02/09/2023 09:54:20 02/09/2023 10:06:50 Pain of right hand 4299954969 98921 M79.501 [id number] Augusto Blanton MD [facility] [place] [address] [place] [address] 02/02/2024 14:52:35 02/02/2024 16:27:30 Bilateral wrist pain 5457865260 2267652 M25.531 M25.532 Pain of ri ght ankle joint 6117906677 2249262 M25.571 Sprain of right ankle 11 99563821 3640155 S93.401A Sprain of right wrist 11 15756950 [id number] S63.501A Sprain of left wrist [id number] S63.502A [id number] Augusto Blanton MD [facility] [place] [address] [place] [address] 03/15/2024 14:59:57 03/15/2024 16:09:45 Sprain of left wrist [id number] S63.502D Sprain of right wrist 11 [id number] S63.501D Sprain of right ankle 11 [id number] S93.401D Bilateral wrist pain 851 [id number] M25.531 M25.532 Pain of ri ght ankle joint [id number] M25.571 Health Concerns Section Related Observation LastModified by Organization Detai ls LastModified Time None Recorded Concern Status LastModified by Organization Details LastModified Time None Recorded Advance Directives Directive None Recorded Payers Insurance Date Sequence Insurance Name Policy Number Policy Vilchis Covered Member ID Vilchis Member ID Guarantor Name 03/20/2024 1 [place] [id number] Lizeth Olvera [id number] Lizeth Olvera 02/02/2024 1 [place] Lizeth Olvera [id number] Lizeth Olvera 02/02/2024 1 [facility] - DOS ON OR AFTER 20 (MEDICAID REPLACEMENT - HMO) Lizeth Olvera [id number] Lizeth Olvera Notes Date Note Type Note Provider Name and Address Organization Details Recorded Time 02/09/2023 text/html 52-year-old female approximately 7 weeks status post right ring and middle finger trigger finger release performed on 12/23/2022. Patient is doing well and has not had any triggering of her fingers. She does note some continued swelling in the right ring and long fingers. GRETA Queen [address] [facility], [facility] [address], [place], [address], [facility] adjust 02/09/2023 11:58:15 02/02/2024 text/html The patient is a 53-year-old female who presents after an injury 1 month ago. She states she tripped and fell in a parking lot landing on her outstretched bilateral hands as well as having an inversion type injury to her right ankle. She did go to the ER at that time she had x-rays performed of both wrists and her right ankle. The right ankle shows what what appears to be very small nondisplaced avulsion fracture of the distal tip of the lateral malleolus. Ankle mortise is well-maintained I have reviewed the x-rays in detail today with the patient and agree with the above findings. She showed me pictures today in the office of her ankle which showed fairly severe swelling throughout the ankle swelling has improved however she continues to have some mild to moderate swelling she had extensive ecchymosis this has resolved. She is able to bear full weight she was in a cam walker boot for a brief time she has gotten out of this in his wearing regular shoes today. She has mild to moderate pain mostly localized to the lateral gutter in the ATFL region no pain or tenderness or weakness is noted no loss of motion no instability. She comes in today for initial evaluation treatment of her right ankle sprain. She also had contusions to both hands wrist x-rays demonstrated no acute fracture lesion mass she was still having some pain left worse than right she was concerned about this her exam was fairly benign on the right today the left side showed some tenderness over the scaphoid snuffbox region so we obtained new x-rays dedicated to the scaphoid these appear to be normal I do not see any new fracture here. No evidence of a healing fracture. I reviewed her other x-rays in detail that showed no acute fractures in either hand or wrist and agree with the above findings. The patient states she does have some pain and trouble doing anything heavy repetitive with either hand she denies any numbness or tingling loss of motion loss of function in either hand. Most of the pain is localized to the thenar eminence regions and basilar thumb joints as well as the snuffbox more on the left. New past medical history sheet was reviewed and signed on intake sheet of today's date drug allergies current medications family social history previous surgical history 10 point review of systems was reviewed and discussed in detail today with the patient. GRETA Duff [address] [facility] [address], [place], [address], [place] [facility] [place] [facility] 02/02/2024 17:08:20 03/15/2024 text/html The patient returns for recheck of her bilateral wrists and right ankle. She had an injury where she tripped and fell in a parking lot on her outstretched bilateral hands also had an inversion injury of her right ankle. X-rays of the hands and wrists demonstrated no acute fractures or lesions. X-rays of the right ankle showed what appeared to be a small nondisplaced avulsion fracture of the distal tip of the lateral malleolus. She had a lot of pain and swelling laterally she was in a cam walker boot for a couple of weeks but then quickly got out of that. Most of her pain was localized to the lateral gutter and distal tip of the lateral malleolus we ordered a course of physical therapy and oral prednisone which seems to be working for her. She states today her pain is about a 3 on a scale of 1-10 she overdoes it she gets little bit of aching laterally in the right ankle she still has some puffiness and swelling there but overall much more comfortable with ambulation and weight-bearing. 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 She also had contusions and sprains of both hands and wrists. 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 She comes in today for recheck and further follow-up. GRETA Duff [address] [facility], [facility] [address], [place], [address], [place] [facility] [place] [facility] 03/15/2024 16:08:26 OBGyn Episode No OBEpisode recorded.
--- OUTSIDE RECORDS SUMMARY | 2025-05-20 03:24 | XMS_ITS | Clinical Summary ---
Author Organization [facility] [address] Address [address] [place] [address] Care Team Providers Care Second Worker Name Role Phone Rafita Benoit MD Primary Care Prov ider Allergies No known active allergies Social History Tobacco Use Types Packs/Day Years Used Date Smoking Tobacco: Never Assessed Personal Safety Answer Date Recorded Getting School Help Needed Not on file 08/13 Comments Unknown Sex and Gender Information Value Date Recorded Sex Assigned at Not on file Legal Sex Female 2:16 AM CUSTOMS VERIFIER Gender Identity Not on file Sexual Orientation [...] Plan of Treatment Not on file Insurance [facility] Care Teams Second Worker Relationship Specialty Start Date End Date Rafita Benoit MD PCP - General Family Medicine 04/22/21
--- OUTSIDE RECORDS SUMMARY | 2025-05-20 03:24 | XMS_ITS | Encounter Summary ---
Author Organization [facility] Facility Care Team Providers Care Postal Superintendent Name Role Phone Tricia Palma Primary Care Provider [phone] Rafita Benoit MD Primary Care Prov ider Encounter Details Date Type Department Care Team (Latest Contact Info) Description 09/14/2016 Orders Only [facility] CLINCON[facility] ProviderPa MD [address] [place] [address] Social History Tobacco Use Types Packs/Day Years Used Date Smoking Tobacco: Never Assessed Comments Unknown Sex and Gender Information Value Date Recorded Sex Assigned at Not on file Legal Sex 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
--- OUTSIDE RECORDS SUMMARY | 2025-05-20 03:24 | XMS_ITS | Clinical Summary ---
Author Organization [facility] Care Team Providers Care Leather Cutter Name Role Phone Unavailable Primary Care Provider [...]
--- OUTSIDE RECORDS SUMMARY | 2025-05-20 03:24 | XMS_ITS | Encounter Summary ---
Author Organization [facility] Facility Care Team Providers Care Pan Devulcanizer Name Role Phone Tricia Palma Primary Care Provider [phone] Rafita Benoit MD Primary Care Prov ider Encounter Details Date Type Department Care Team (Latest Contact Info) Description 08/26/2016 Orders Only [facility] CLINCONV ProviderPa MD [address] [place] [address] Social History Tobacco Use Types Packs/Day Years Used Date Smoking Tobacco: Never Assessed Comments Unknown Sex and Gender Information Value Date Recorded Sex Assigned at Not on file Legal Sex Female 2:16 AM FAMILY RESOURCE MANAGEMENT SPECIALIST Gender Identity Not on file Sexual Orientation [...] on filedocumented in this encounter Care Teams Pan Devulcanizer Relationship Specialty Start Date End Date Tricia Palma PA [address] [place] [address] PCP - General Physician Emts 02/26/21 04/21/21 Rafita Benoit MD [address] [place] [address] PCP - General Family Medicine 04/22/21 documented as of this encounter
--- OUTSIDE RECORDS SUMMARY | 2025-05-20 03:24 | XMS_ITS | Encounter Summary ---
Author Organization [facility] Facility Care Team Providers Care Integrated Logistics Support Manager Name Role Phone Tricia Palma Primary Care Provider [phone] Rafita Benoit MD Primary Care Prov ider Encounter Details Date Type Department Care Team (Latest Contact Info) Description 06/29/2016 Orders Only [facility] CLINCONV ProviderPa MD [address] [place] [address] Social History Tobacco Use Types Packs/Day Years Used Date Smoking Tobacco: Never Assessed Comments Unknown Sex and Gender Information Value Date Recorded Sex Assigned at Not on file Legal Sex Female 2:16 AM RENTAL SALES 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 Historical Provider Final Res ult documented in this encounter Visit Diagnoses Not on filedocumented in this encounter Care Teams Integrated Logistics Support Manager Relationship Specialty Start Date End Date Tricia Palma PA [address] [place] [address] PCP - General Physician Direct Of Real Estate 02/26/21 04/21/21 Rafita Benoit MD [address] [place] [address] PCP - General Family Medicine 04/22/21 documented as of this encounter
--- OUTSIDE RECORDS SUMMARY | 2025-05-20 03:24 | XMS_ITS | Encounter Summary ---
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
--- OUTSIDE RECORDS SUMMARY | 2025-05-20 03:24 | XMS_ITS | Clinical Summary ---
Author Organization [facility] Address [address] [place] [address] Care Team Providers Care Marine Machinist Name Role Phone Tricia Palma Primary Care Provider [phone] Allergies No known active allergies Medications atorvastatin [...] of 2) 2022 COVID-19 Vaccine ( - 2024-2 6 season) 2025 Influenza Adult (#1) 2025 Hepatitis [...] 7.8(H) <5.7 % 12/12/2017 11:38 AM CDT [facility] Comment: INCREASED RISK OF DIABETES<5.7% NON-DIABETES5.7-6.4% INCREASED RISK FOR FUTURE DIABETES> OR = 6.5 CONSISTENT WITH DIABETES STANDARDS OF MEDICAL CARE IN DIABETES-[facility], 33(SUPP 1): S1-S61,2009 WHOLE BLOOD SPECIMEN / Unknown 12/12/2017 9:57 AM CDT 12/12/2017 9:58 AM CDT us Generic Conversion Md [facility] Final R esult [facility] [address] [place] [address], * (ABNORMAL) LIPID PANEL (12/12/2017 9:57 AM CDT) CHOLESTEROL 210(H) <200.0 MG/DL 12/12/2017 10:38 AM [facility] TRIGLYCERIDES 351(H) <150 MG/DL 12/12/2017 10:38 AM [facility] HDL 37(L) >40.0 MG/DL 12/12/2017 10:38 AM [facility] LDL (CALCULATED) 102.8(H) <100 MG/DL 12/12/2017 10:38 AM [facility] NON HDL CHOLESTEROL 173(H) <130 MG/DL 12/12/2017 10:38 AM [facility] CHOL/HDL RATIO 5.7(H) 0.0 - 4.5 12/12/2017 10:38 AM [facility] VLDL CALCULATION 70(H) 5 - 55 MG/DL 12/12/2017 10:38 AM [facility] LIPID INTERPRETATION 12/12/2017 10:38 AM [facility] Comment: NIH CONCENSUS REPORT RECOMMENDATIONS: [...] Conversion Md [facility] Final R esult [facility] [address] [place] [address], [place] [phone] from Last 3 Months or Most Recently Relevant to Health Maintenance Insurance [place] Advance Directives * Full Code (Latest Code Status on File) Date Activated Date Inactivated Comments 03/29/2022 8:09 PM 04/02/2022 3:33 PM Care Teams Marine Machinist Relationship Specialty Start Date End Date Tricia Plama PA [address] [place] [address] PCP - General PHYSICIAN FITNESS COACH 01/08/21
--- OUTSIDE RECORDS SUMMARY | 2025-05-20 03:24 | XMS_ITS | Encounter Summary ---
Author Organization [facility] Facility Care Team Providers Care Concrete Rod Buster Name Role Phone Tricia Palma Primary Care Provider Rafita Benoit MD Primary Care Prov ider Encounter Details Date Type Department Care Team (Latest Contact Info) Description 05/18/2016 Orders Only [facility] CLINCONV ProviderPa MD [address] [place] [address] Social History Tobacco Use Types Packs/Day Years Used Date Smoking Tobacco: Never Assessed Comments Unknown Sex and Gender Information Value Date Recorded Sex Assigned at Not on file Legal Sex Female 2:16 AM HOSPITAL CODER Gender Identity Not on file Sexual Orientation Not on file documented as of this encounter Plan of Treatment Not on file documented as of this encounter Procedures Procedure Name Priority Date/Time Associated Diagnosis Comments PROCEDURE - RESULT 05/18/2016 12 :00 AM HOSPITAL CODER PROCEDURE - RESULT 05/18/2016 12 :00 AM HOSPITAL CODER documented in this encounter Results * PROCEDURE - RESULT (05/18/2016 12:00 AM HOSPITAL CODER) Narrative 05/18/2016 12:00 AM HOSPITAL CODER Ordered by an unspecified provider. Historical Provider Final Res ult * PROCEDURE - RESULT (05/18/2016 12:00 AM HOSPITAL CODER) Narrative 05/18/2016 12:00 AM HOSPITAL CODER Ordered by an unspecified provider. us Historical Provider Final Res ult documented in this encounter Visit Diagnoses Not on filedocumented in this encounter Care Teams Concrete Rod Buster Relationship Specialty Start Date End Date Tricia Palma PA [address] [place] [address] PCP - General Physician Deal Architect 02/26/21 04/21/21 Rafita Benoit MD [address] [place] [address] PCP - General Family Medicine 04/22/21 documented as of this encounter
[2025-05-20 07:42] VITALS: BP 120/78; PULSE 83; RESP 16; TEMP 36.1; O2SAT 99; BMI 27.0
[2025-05-20] MEDS: LACTATED RINGERS 1,000 ML 150 ML IV CONT (07:51)
--- NOTE | 2025-05-20 08:59 | P.PNAN_ITS ---
Anes - Initial Pre Proc Eval Procedure: Operation Date: 05/20/25 08:30 Proposed Procedures p Diagnostic Colonoscopy - Carl Jorgensen MD Date/Time: 05/20/25 08:59 Surgeon: Carl Jorgensen MD Pre Op Diagnosis: Ulcerative colitis, unspecified, without complicat Patient Data Age: 54 Gender: F Height: 1.68 m Weight: 76 kg Last Vital Signs Temp 36.1 C L 05/20/25 07:42 Pulse 83 05/20/25 07:42 Resp 16 05/20/25 07:42 BP 120/78 05/20/25 07:42 Pulse Ox 99 05/20/25 07:42 O2 Del Method Room Air 05/20/25 07:42 Allergies Allergy/AdvReac Type Severity Reaction Status Date / Time No Known Allergies Allergy Verified 05/20/25 07:37 Home Medications ?Medication ?Instructions ?Recorded ?Confirmed ?Type ibuprofen 600 mg tablet 600 mg PO Q6H PRN headache 0 06/29/21 05/20/25 History pen needle, diabetic 32 gauge x #100 ea 10/25/2205/06 Rx (TRUEplus Pen Needle) multivitamin 1 tablet PO DAILY 01/11/23 1 07/21/24 History aspirin 81 mg tablet,delayed 81 mg PO DAILY 04/05/23 1 07/07/24 History release thyroid (pork) 60 mg tablet See Rx Instructions .Route 11/05/24 05/20/25 Rx ([place] Thyroid) .COMPLEX #90 tabs tirzepatide 12.5 mg/0.5 mL 12.5 mg (0.5 mL) subcut WEE KLY #6 12/20/24 05/20/25 Rx subcutaneous pen injector mL (Mounjaro) pantoprazole 40 mg tablet,delayed See Rx Instructions .Route 12/26/24 05/20/25 Rx release .COMPLEX #90 tabs dapagliflozin propanediol 10 mg 10 mg PO DAILY #90 tab s 02/06/25 05/20/25 Rx tablet (Farxiga) sodium,potassium,mag sulfates 17.5 See Rx Instructions PO .COMPLEX 03/13/25 04/09/25 Rx gram-3.13 gram-1.6 gram oral soln #354 mL (Suprep Bowel Prep Kit) ondansetron 4 mg disintegrating See Rx Instructions .R oute 04/14/25 05/06/25 Rx tablet .COMPLEX #20 tabs blood-glucose sensor (FreeStyle #6 ea 04/15/25 5 Rx Esmer 3 Plus Sensor device) venlafaxine 150 mg 150 mg PO DAILY #90 caps 05/20/25 Rx capsule,extended release 24 hr furosemide 20 mg tablet See Rx Instructions .Route 1 07/02/24 05/20/25 Rx .COMPLEX #90 tabs hydrocodone 7.5 mg-acetaminophen 1 tablet PO Q4H PRN p ain #180 tabs 05/07/25 05/20/25 Rx 325 mg tablet atorvastatin 10 mg tablet See Rx Instructions .Route 1 07/15/24 05/20/25 Rx .COMPLEX #90 tabs thyroid (pork) 15 mg tablet See Rx Instructions .Route 05/14/25 05/20/25 Rx ([place] Thyroid) .COMPLEX #90 tabs mesalamine 1.2 gram tablet,delayed 4.8 g (4 x 1.2 gram ) PO DAILY 3 05/15/25 05/20/25 Rx release (Lialda) months #360 tabs Patient hx anesthesia problems: none Family hx anesthesia problems: none Results Review: All pre-operative results and documents have been reviewed as part of the pre- operative evaluation. [facility] Past Medical History Medical History Neurogenic claudication due to lumbar spinal stenosis Ulcerative colitis Sacroiliitis Lumbar stenosis Lumbar spondylosis Lumbar radiculopathy Fusion of lumbar spine Dorsalgia Trigger finger Type 2 diabetes mellitus with hyperglycemia Pure hyperglyceridemia Hypothyroidism, unspecified HTN (hypertension) Type 2 diabetes mellitus with hyperosmolarity without nonketotic hyperglycemic- hyperosmolar coma ([facility]) MDD (major depressive disorder) Colitis Sciatica, right side GERD (gastroesophageal reflux disease) TMJ (temporomandibular joint disorder) Bilateral carpal tunnel syndrome Surgical History Surgical History S/P trigger finger release History of cholecystectomy (2008) History of hysterectomy (2011) History of hand surgery 01/23/23, trigger finger release, right hand History of carpal tunnel surgery (~10/2020) History of back surgery (2017) Dr Rubin, L5-S1 fusion Family History Family History Sibling Family history of gout Family history of kidney stones Family history of diabetes mellitus in first degree relative Depression Malignant neoplasm of prostate Father Family history of heart disease in male family member before age 55 Acute myocardial infarction Diabetes mellitus Hypertension Heart disease Mother Diabetes mellitus Depression Thyroid disorder Hypertension Other Asthma Depression Grandparent Diabetes mellitus Grandparent Depression Hypertension Other Cerebrovascular accident Family history of arthritis Family history of cardiovascular disease Family history of malignant neoplasm Family history of malignant neoplasm of breast Family history of seizure disorder Family history of throat cancer Social History Social History Smoking packs per day: 0.5 Smoking cigarettes per day: 10.0 Years smoked: 20 Smoking pack-years: 10.00 Smoking status: Former smoker Tobacco type: cigarettes Smoking end date: 09/18/19 Alcohol intake: current Alcohol use details: socially Substance use: never Substance use type: does not use Lack of Transportation: No Lack of Food: Never True Current Housing: I Have Housing Concerned About Future Housing: No Difficulty Paying Gas/Electric Bills: No Difficulty Paying for Meds: No Currently Unemployed: No Education: High School Diploma/GED Difficulty w/ Childcare or Family Care: No Living arrangements: with family Additional living arrangements comments: 2 daughters Gender identity (if verbalized by the patient): Female Spiritual care concerns: No Anes - Eval Final PreProcedure Day of Procedure 05/20/25 08:59 Patient weight: overweight Heart: regular rate and rhythm Lungs: clear to auscultation Airway: Mallampati scale class II Neurological: alert and oriented Last oral intake: >/= 8 hours ASA classification: III Emergent: no Anesthetic plan: proceed Anesthesia type and monitoring: general GIVS and standard monitoring Results Review: All pre-operative results and documents have been reviewed as part of the pre- operative evaluation. Informed Consent: The patient's anesthetic plan and its attendant risks and benefits were discussed with the patient/family/POA. Questions were solicited and answers provided to the satisfaction of the patient/family/POA.
--- NOTE | 2025-05-20 09:01 | PM.HPGS ---
History of Present Illness History of Present Illness Consent: Risks, benefits, and alternatives have been discussed and questions answered. Patient agrees to proceed with procedure. Chief complaint: Ulcerative colitis, unspecified, without complicat Narrative: Lizeth Olvera is a 54 year old female with left sided UC diagnosed 2021 on mesalamine, no flare for last 3 years, biologic naive Review of Systems Review of Systems: All systems reviewed & are unremarkable except as noted in HPI and below PMFSH Past Medical History Medical History Neurogenic claudication due to lumbar spinal stenosis Ulcerative colitis Sacroiliitis Lumbar stenosis Lumbar spondylosis Lumbar radiculopathy Fusion of lumbar spine Dorsalgia Trigger finger Type 2 diabetes mellitus with hyperglycemia Pure hyperglyceridemia Hypothyroidism, unspecified HTN (hypertension) Type 2 diabetes mellitus with hyperosmolarity without nonketotic hyperglycemic-hyperosmolar coma ([facility]) MDD (major depressive disorder) Colitis Sciatica, right side GERD (gastroesophageal reflux disease) TMJ (temporomandibular joint disorder) Bilateral carpal tunnel syndrome Surgical History Surgical History S/P trigger finger release History of cholecystectomy (2008) History of hysterectomy (2011) History of hand surgery 01/23/23, trigger finger release, right hand History of carpal tunnel surgery (~10/2020) History of back surgery (2016) Dr Rubin, L5-S1 fusion Family History Family History Sibling Family history of gout Family history of kidney stones Family history of diabetes mellitus in first degree relative Depression Malignant neoplasm of prostate Father Family history of heart disease in male family member before age 55 Acute myocardial infarction Diabetes mellitus Hypertension Heart disease Mother Diabetes mellitus Depression Thyroid disorder Hypertension Other Asthma Depression Grandparent Diabetes mellitus Grandparent Depression Hypertension Other Cerebrovascular accident Family history of arthritis Family history of cardiovascular disease Family history of malignant neoplasm Family history of malignant neoplasm of breast Family history of seizure disorder Family history of throat cancer Social History Social History Smoking packs per day: 0.5 Smoking cigarettes per day: 10.0 Years smoked: 20 Smoking pack-years: 10.00 Smoking status: Former smoker Tobacco type: cigarettes Smoking end date: 09/18/19 Alcohol intake: current Alcohol use details: socially Substance use: never Substance use type: does not use Lack of Transportation: No Lack of Food: Never True Current Housing: I Have Housing Concerned About Future Housing: No Difficulty Paying Gas/Electric Bills: No Difficulty Paying for Meds: No Currently Unemployed: No Education: High School Diploma/GED Difficulty w/ Childcare or Family Care: No Living arrangements: with family Additional living arrangements comments: 2 daughters Gender identity (if verbalized by the patient): Female Spiritual care concerns: No Meds Home Medications and Allergies Home Medications ?Medication ?Instructions ?Recorded ?Confirmed ?Type ibuprofen 600 mg tablet 600 mg PO Q6H PRN headache 06/29/21 05/20/25 History pen needle, diabetic 32 gauge x #100 ea 10/25/22 05/06/25 Rx / (TRUEplus Pen Needle) multivitamin 1 tablet PO DAILY 01/11/23 05/20/25 History aspirin 81 mg tablet,delayed 81 mg PO DAILY 04/05/23 05/06/25 History release thyroid (pork) 60 mg tablet See Rx Instructions .Route 11/05/24 05/20/25 Rx ([place] Thyroid) .COMPLEX #90 tabs tirzepatide 12.5 mg/0.5 mL 12.5 mg (0.5 mL) subcut WEEKLY #6 12/20/24 05/20/25 Rx subcutaneous pen injector mL (Mounjaro) pantoprazole 40 mg tablet,delayed See Rx Instructions .Route 12/26/24 05/20/25 Rx release .COMPLEX #90 tabs dapagliflozin propanediol 10 mg 10 mg PO DAILY #90 tabs 02/06/25 05/20/25 Rx tablet (Farxiga) sodium,potassium,mag sulfates 17.5 See Rx Instructions PO .COMPLEX 03/13/25 04/09/25 Rx gram-3.13 gram-1.6 gram oral soln #354 mL (Suprep Bowel Prep Kit) ondansetron 4 mg disintegrating See Rx Instructions .Route 04/14/25 05/06/25 Rx tablet .COMPLEX #20 tabs blood-glucose sensor (FreeStyle #6 ea 04/15/25 05/06/25 Rx Esmer 3 Plus Sensor device) venlafaxine 150 mg 150 mg PO DAILY #90 caps 04/16/25 05/20/25 Rx capsule,extended release 24 hr furosemide 20 mg tablet See Rx Instructions .Route 05/01/25 05/20/25 Rx .COMPLEX #90 tabs hydrocodone 7.5 mg-acetaminophen 1 tablet PO Q4H PRN pain #180 tabs 05/07/25 05/20/25 Rx 325 mg tablet atorvastatin 10 mg tablet See Rx Instructions .Route 05/14/25 05/20/25 Rx .COMPLEX #90 tabs thyroid (pork) 15 mg tablet See Rx Instructions .Route 05/14/25 05/20/25 Rx ([place] Thyroid) .COMPLEX #90 tabs mesalamine 1.2 gram tablet,delayed 4.8 g (4 x 1.2 gram) PO DAILY 3 05/15/25 05/20/25 Rx release (Lial[facility]) months #360 tabs Allergies Allergy/AdvReac Type Severity Reaction Status Date / Time No Known Allergies Allergy Verified 05/20/25 07:37 Vital Signs Vital Signs - 24 hr 05/20/25 07:42 Temperature 97 F L Pulse Rate 83 Respiratory Rate 16 Blood Pressure 120/78 Pulse Oximetry 99 Oxygen Delivery Room Air Exam Const: General: comfortable and no acute distress HENMT: Face/Nose/Sinus: Normal nares present Eyes: General: appearance normal, both eyes and all related structures Neck: Neck: no JVD Resp: Auscultation: clear to auscultation bilaterally Cardio: Rate: regular rate Rhythm: regular rhythm GI: Inspection: non-distended GI Palp: Yes Soft to palpation Skin: General skin exam: normal color Psych: Mental Status: mental status grossly normal Assessment and Plan Assessment and plan (1) Ulcerative colitis: Code(s): K51.90 - Ulcerative colitis, unspecified, without complications Status: Acute Assessment and Plan: colonoscopy with bx
--- NOTE | 2025-05-20 09:13 | S_PTH ---
PATIENT: Lizeth Olvera LOC: [facility]#:[id number] AGE/SX: 54/F ROOM: RE05/20/[address]: Carl Jorgensen MD : 1970 BED: DIS: 05/20/2025 SPEC #: [id number] RECD: 05/20/25 09:48 STATUS: CATALINA REStephen #: [id number] MARCELA: 05/20/25 09:[address]: Carl Jorgensen DEPT: [facility] Surgical RECD BY: Marya Garrido ENTERED: 05/20/25 09:50 SP TYPE: Surgical OTHR DR: Valentina Lobo DO Tissues: A - Colon Biopsy B - Colon Biopsy Procedures: Hematoxylin and Eosin Stain Gross and Microscopic Level 4
[2025-05-20 09:14] VITALS: BP 103/63; PULSE 76; RESP 17; O2SAT 97
[2025-05-20 09:24] VITALS: BP 102/67; PULSE 74; RESP 13; O2SAT 100
== END 2025-05-20 09:47 | disposition home or self-care (01) ==
PROVIDERS: PCP Family Medicine; Referring Provider Nurse Practitioner Family; Visit Provider Internal Medicine Gastroenterology
PROC: 0DJD8ZZ Inspection of Lower Intestinal Tract, Via Natural or Artificial Opening Endoscopic (ICD-10-PCS; CPT 45378; principal; 2025-05-20 08:30)
DX: K51.90 Ulcerative colitis, unspecified, without complications (principal); K64.8 Other hemorrhoids; Z87.891 Personal history of nicotine dependence
CPT/HCPCS: 45380; 88305; J2704; J7120